=== PATIENT | female | born 1940 | race Caucasian/White ===

== ENCOUNTER 2016-08-20 10:36 | Inpatient (IN) | payer MEDICARE, BC ==
[2016-08-17 14:41] VITALS: Ht 170.2 cm; Wt 89.0 kg
[2016-08-20] VITALS (27 sets, daily range): BP systolic 81–175; BP diastolic 38–79; PULSE 71–108; RESP 16–42
[~2016-08-20] VITALS: Ht 170.2 cm; Wt 89.0 kg
[2016-08-20] MEDS ORDERED: VIT D2 PO (12:34)
[2016-08-20] MEDS ORDERED: OXYC-279 PO (12:34)
[2016-08-20] MEDS ORDERED: ZOLP5TAB7 PO (12:34)
[2016-08-20] MEDS ORDERED: ENAL20TA73 PO (12:34)
[2016-08-20] MEDS ORDERED: [UNRECOGNIZED DRUG - OTHER] PO (12:34)
[2016-08-20] MEDS ORDERED: CLOP75TA27 PO (12:34)
[2016-08-20] MEDS ORDERED: ALLO100T PO (12:34)
[2016-08-20] MEDS ORDERED: TRAM50TA2 PO (12:34)
[2016-08-20] MEDS ORDERED: SIMV5TAB50 PO (12:34)
[2016-08-20] MEDS ORDERED: POLYMYXIN/BACITRACIN 1L IRRIG ONE (12:42)
[2016-08-20] MEDS ORDERED: LIDOCAINE 0.5%/EPI (MDV) 50 ML INJ ONE (12:42)
[2016-08-20] MEDS ORDERED: THROMBIN 5000 UNIT VIAL ONE ×2 (12:42→12:50)
[2016-08-20] MEDS ORDERED: GELATIN SIZE 100 SPONGE ONE (12:42)
[2016-08-20] MEDS ORDERED: MIDAZOLAM 1 MG/ML 2 ML INJ ONE (12:59)
--- NOTE | 2016-08-20 14:06 | HPN ---
Date/Time of Note Date/Time of Note DATE: 08/20/16 TIME: 14:06 Interval H&P Admission Note Pt. seen H&P reviewed: No system changes DAPHNEY WALSH PA-C August 20, 2016 14:06
[2016-08-20] MEDS: DEXTROSE 5%-LR 1,000 ML IV SCH ×2 (14:30→20:06)
[2016-08-20] MEDS ORDERED: ONDANSETRON 4 MG INJ IV PRN ×2 (14:30→15:30)
[2016-08-20] MEDS ORDERED: CEFAZOLIN 1 GM INJ ONE (14:34)
[2016-08-20] MEDS ORDERED: THROMBIN 5000 UNIT VIAL TOP ONE (14:43)
[2016-08-20] MEDS ORDERED: GELATIN SIZE 100 SPONGE TOP ONE (14:43)
[2016-08-20] MEDS ORDERED: hydrALAzine 20 MG INJ ONE ×2 (14:43→14:46)
[2016-08-20] MEDS ORDERED: POLYMYXIN/BACITRACIN 1L IRRIG IRR ONE (14:43)
[2016-08-20] MEDS ORDERED: HYDROmorphONE (0.2 MG/ML) 10ML SYG IV PRN (15:30)
[2016-08-20] MEDS ORDERED: LABETALOL HCL 20MG INJ IV PRN (15:30)
[2016-08-20] MEDS ORDERED: hydrALAzine 20 MG INJ IV PRN (15:30)
[2016-08-20] MEDS ORDERED: PHENYLephrine (100 MCG/ML) 5ML SYG ONE (15:36)
[2016-08-20] MEDS ORDERED: LIDOCAINE 2% (SDV) 5 ML INJ ONE (16:47)
[2016-08-20] MEDS ORDERED: ROCURONIUM 50 MG INJ ONE ×2 (16:47)
[2016-08-20] MEDS ORDERED: ETOMIDATE 20 MG INJ ONE (16:47)
[2016-08-20] MEDS ORDERED: FUROSEMIDE 20 MG INJ ONE (17:03)
[2016-08-20] MEDS ORDERED: ALBUTEROL 0.083% (NEB) 2.5 MG/3 ML AMP ONE (17:08)
[2016-08-20] MEDS: FENTAnyl 50 MCG/ML VIAL IV PRN ×4 (17:21→17:57)
[2016-08-20] MEDS: HYDROmorphONE (0.2 MG/ML) 10ML SYG IV PRN ×3 (17:21→17:54)
--- NOTE | 2016-08-20 17:29 | RADRPT ---
PROCEDURE: Intraoperative imaging of the lumbar spine with fluoroscopy. CLINICAL INDICATION: Back pain. Intraoperative. TECHNIQUE: 3 images of the lumbar spine were obtained in the operating room with an image intensif ier. No radiologist was in attendance. 6.7 seconds of fluoroscopy time was used. COMPARISON: No prior study is available for comparison. FINDINGS: Images demonstrate bilateral laminectomy at multiple levels. IMPRESSION: 1. Intraoperative imaging of the lumbar spine. RPTAT: QQ .Flynn Gaitan MD, MD Date Time Electronically viewed and signed by .Flynn Gaitan MD, MD on 08/20/2016 17:29 .R/
[2016-08-20] MEDS ORDERED: ALBUTEROL 0.083% (NEB) 2.5 MG/3 ML AMP HHN ONE (17:30)
[2016-08-20] MEDS ORDERED: morphine (1 MG/ML) 10ML SYRINGE IV ONE (18:03)
[2016-08-20] MEDS: morphine (1 MG/ML) 10ML SYRINGE IV PRN ×3 (18:30→18:40)
[2016-08-20] MEDS ORDERED: EPHEDrine SULFATE 50 MG/5 ML SYG ONE (18:35)
[2016-08-20] MEDS: morphine 2 MG INJ IV PRN ×2 (20:09→23:08)
[2016-08-20] MEDS ORDERED: ACETAMINOPHEN 1000MG/100ML IV 100 ML IVPB PRN (22:00)
[2016-08-20] MEDS: CEFAZOLIN 1 GM/50 ML (PMX) 50 ML IVPB SCH (22:43)
[2016-08-21] VITALS: BP 108/61; PULSE 85; RESP 18
[2016-08-21] MEDS ORDERED: CEPASTAT LOZENGE MT PRN (01:00)
--- NOTE | 2016-08-21 01:04 | HP ---
DATE OF ADMISSION: 08/20/2016 CHIEF COMPLAINT AND HISTORY OF PRESENT ILLNESS: The patient is a 75-year-old female with history of hypertension, dyslipidemia, chronic back pain. The patient was diagnosed with lumbar spondylosis. The patient failed conservative treatment and was seen by Dr. Guido and was brought in [facility]. The patient underwent lumbar laminectomy. The patient is being admitted for further evalu ation and management. The patient denied any history of chest pain or shortness of breath. No hist ory of fever or chills. No history of nausea, vomiting. No history of abdominal pain. No history of recent infection. The patient denies any history of recent fall. No history of headache, dizzin ess, syncope. The patient did have postoperative pain. REVIEW OF SYSTEMS: The rest of review of systems unremarkable. PAST MEDICAL HISTORY: As stated above. ALLERGIES: NONE. SOCIAL HISTORY: No smoking, no alcohol. FAMILY HISTORY: Noncontributory to the patient's admission. PHYSICAL EXAMINATION: GENERAL: The patient is conscious, awake, alert. VITAL SIGNS: Temperature 98, pulse 96, blood pressure 108/57, O2 saturation 97%. HEENT: Atraumatic, normocephalic head. Conjunctivae and lids normal. Extraocular movements intact . Oropharynx clear. NECK: Supple. No mass, no thyromegaly. CHEST: Fairly clear. No use of accessory muscles. CARDIOVASCULAR: S1, S2 normal. No murmur, gallop, or rub. ABDOMEN: Soft, nondistended, nontender. Bowel sounds present. EXTREMITIES: No leg edema. Pedal pulses palpable. SKIN: Without acute rash or ____. NEUROLOGIC: The patient is awake, alert with no gross focal deficit, although exam was limited due to recent surgery. IMPRESSION: 1. Lumbar spondylosis status post laminectomy. 2. Hypertension. 3. Dyslipidemia. PLAN: The patient admitted on medical floor. The patient will be started on IV Ancef as per protoc ol. Will be given IV fluids, Tylenol, [place], and IV morphine for pain control. I will hold off on her antihypertensive medication since blood pressure is low normal. Will give hydralazine on p.r.n. basis. The patient will have SCDs for DVT prophylaxis. PT, OT as per Dr. Guido. Further recomm endation depends on patient's hospital course. Dictated By: SAUL ONTIVEROS/DEBBY Conf#: [id number] DID#: [id number] CC: LIAM GUIDO MD;*EndCC*
[2016-08-21] MEDS: morphine 2 MG INJ IV PRN ×3 (03:10→10:14)
[2016-08-21 04:00] VITALS: BP 101/64; PULSE 83; RESP 18
[2016-08-21 05:42] LABS: ADD SCAN DIFF NO
[2016-08-21 05:50] LABS: BASOPHILS % 0.1 % (0.0-2.0); EOSINOPHILS % 0.1 % (0.0-7.0); HEMATOCRIT 26.9 % (37.0-47.0); HEMOGLOBIN 8.3 g/dl (12.0-16.0); LYMPHOCYTES # 0.8 10^3/ul (0.8-2.9); LYMPHOCYTES % 6.2 % (15.0-51.0); MEAN CORPUSCULAR HEMOGLOBIN 26.9 pg (29.0-33.0); MEAN CORPUSCULAR HGB CONC 30.9 g/dl (32.0-37.0); MEAN CORPUSCULAR VOLUME 87.3 fl (82.0-101.0); MEAN PLATELET VOLUME 11.1 fl (7.4-10.4); MONOCYTE # 1.2 10^3/ul (0.3-0.9); NEUTROPHIL # 11.3 10^3/ul (1.6-7.5); NEUTROPHILS % 83.9 % (39.0-77.0); PLATELET COUNT 200 10^3/UL (140-415); RED BLOOD COUNT 3.08 10^6/ul (4.20-5.40); RED CELL DISTRIBUTION WIDTH 16.5 % (11.5-14.5); WHITE BLOOD COUNT 13.4 10^3/ul (4.8-10.8)
[2016-08-21 06:09] LABS: POTASSIUM 3.8 mmol/L (3.5-5.1)
[2016-08-21 06:12] LABS: CREATININE 1.98 mg/dl (0.44-1.00)
[2016-08-21 06:13] LABS: CALCIUM 8.5 mg/dl (8.4-10.2)
[2016-08-21] MEDS: CEFAZOLIN 1 GM/50 ML (PMX) 50 ML IVPB SCH ×3 (06:40→20:59)
[2016-08-21] MEDS: DEXTROSE 5%-LR 1,000 ML IV SCH ×2 (07:10→13:34)
[2016-08-21 07:47] VITALS: BP 138/48; RESP 18
[2016-08-21] MEDS: HYDROCODONE/APAP (10/325) TAB PO PRN ×2 (11:59→16:09)
--- NOTE | 2016-08-21 13:59 | CONS ---
Date/Time of Note Date/Time of Note DATE: 08/21/16 TIME: 13:58 Assessment/Plan Assessment/Plan Additional Assessment/Plan seen/examined awake/alert/follows/moves all/sensation intact sp lumbar laminectomy drain intact pt/ot has lumbar corset rehab eval Consultation Date/Type/Reason Admit Date/Time August 20, 2016 at 10:36 Initial Consult Date Exam/Review of Systems Vital Signs Vitals Vital Signs Date Time Temp Pulse Resp B/P Pulse Ox O2 Delivery O2 Flow Rate FiO2 08/21/16 07:47 99.9 82 18 138/48 93 08/21/16 04:00 Nasal Cannula 08/20/16 22:30 2.0 Intake and Output 08/20/16 08/20/16 08/21/16 15:00 23:00 07:00 Intake Total 1600 ml 710 ml Output Total 715 ml Balance 885 ml 710 ml Results Result Diagram: 08/21/16 0415 08/21/16 0415 Results 24 hrs Laboratory Tests Test 08/21/16 04:15 White Blood Count 13.4 H Red Blood Count 3.08 L Hemoglobin 8.3 L Hematocrit 26.9 L Mean Corpuscular Volume 87.3 Mean Corpuscular Hemoglobin 26.9 L Mean Corpuscular Hemoglobin Concent 30.9 L Red Cell Distribution Width 16.5 H Platelet Count 200 Mean Platelet Volume 11.1 H Neutrophils % 83.9 H Lymphocytes % 6.2 L Monocytes % 9.0 Eosinophils % 0.1 Basophils % 0.1 Nucleated Red Blood Cells % 0.0 Neutrophils # 11.3 H Lymphocytes # 0.8 Monocytes # 1.2 H Eosinophils # 0.0 Basophils # 0.0 Nucleated Red Blood Cells # 0.0 Sodium Level 140 Potassium Level 3.8 Chloride Level 102 Carbon Dioxide Level 26 Anion Gap 16 Blood Urea Nitrogen 26 H Creatinine 1.98 H Glucose Level 151 Calcium Level 8.5 Medications Medications Current Medications Dextrose/Lactated Ringer's 1,000 ml @ 60 mls/hr [id number] IV Last administered on 08/21/16 13:34; Admin Dose 60 MLS/HR; Start 08/20/16 at 14:30 Cefazolin Sodium (Ancef 1 Gm/50 ml (Pmx)) 50 ml @ 100 mls/hr Q8 IVPB Last administered on 08/21/16 13:35; Admin Dose 100 MLS/HR; Start 08/20/16 at 22:00; Stop 08/21/16 at 22:00 Morphine Sulfate (morphine) 2 mg Q3H PRN IV severe pain Last administered on 10:14; Admin Dose 2 MG; Start 08/20/16 at 14:30 Acetaminophen/ Hydrocodone Bitart ([place] ()) 1 tab Q4H PRN PO PAIN Last administered on 08/21/16 11:59; Admin Dose 1 TAB; Start 08/20/16 at 14:30 Ondansetron HCl (Zofran Inj) 4 mg Q6H PRN IV NAUSEA AND/OR VOMITING Last administered on 08/20/16 20:14; Admin Dose 4 MG; Start 08/20/16 at 14:30 Clonidine 0.1 mg 0.1 mg Q4H PRN PO sbp>160; Start 08/20/16 at 14:30 Acetaminophen (Ofirmev 1000mg/ 100ml Iv) 100 ml @ 400 mls/hr Q6H PRN IVPB PAIN LEVEL 1-3; Start 08/20/16 at 22:00 Phenol (Cepastat Lozenge) 1 lozenge Q6 PRN MT SORE THROAT Last administered on 08/21/16 01:15; Admin Dose 1 LOZENGE; Start 08/21/16 at 01:00 Enalapril Maleate (Vasotec) 20 mg DAILY PO ; Start 08/21/16 at 15:30 Zolpidem Tartrate (Ambien) 5 mg QHS PRN PO INSOMNIA; Start 08/21/16 at 14:00 DAPHNEY WALSH PA-C August 21, 2016 13:59
--- NOTE | 2016-08-21 15:25 | PN ---
DATE: 08/21/2016 SUBJECTIVE: This is a follow up on laminectomy, hypertension, diabetes, peripheral vascular disease , CKD and anemia. The patient reports that after 2 mg of morphine she still had significant pain, n o radicular pain. No numbness, tingling in lower extremities. No resting pain in both legs. No ch est pain or shortness of breath. No reported dizziness. PHYSICAL EXAMINATION: GENERAL: The patient is conscious, awake and alert. VITAL SIGNS: Temperature 99.9, pulse 82, blood pressure 138/48, O2 saturation is 93%. Pulse 82. HEENT: No eye discharge or redness. Oropharynx clear. NECK: No mass. CHEST: Fairly clear. No use of accessory muscles. CARDIOVASCULAR: S1, S2 normal. No murmur, gallop, or rub. ABDOMEN: Soft, nondistended, nontender. Bowel sounds positive. EXTREMITIES: No leg edema. Pedal pulses palpable. SKIN: Without acute rash or ulcer. NEUROLOGIC: The patient is awake, alert, fairly oriented with no gross focal deficit; however, agai n exam was limited due to recent lower back surgery. LABORATORY DATA: Hemoglobin 8.3, down from 10.3 preoperatively, WBC 13.4, platelet 200. Chemistry: Sodium 140, potassium 3.8, BUN 26, creatinine 1.9 which is close to her baseline. Preoperatively, her BUN was 29, creatinine was 1.9. Serum iron done recently was 43, LDL 65. T4 of 9.9. IMPRESSION 1. Lumbar spondylosis status post laminectomy. 2. Anemia of chronic kidney disease with some drop in hemoglobin due to recent surgery. 3. Hypertension. 4. Dyslipidemia. 5. Peripheral vascular disease. 6. Chronic kidney disease stage III. 7. History of gout. 8. Chronic obstructive pulmonary disease. PLAN: We will check iron panel and serum ferritin. We will give 1 dose of Procrit due to anemia of chronic kidney disease. Will hold off on Vasotec and will continue statins. I spoke with Pio black rding the resumption regarding resuming Plavix and according to him once the drain is out, Plavix co uld be resumed. Meanwhile, we will resume her Allopurinol. Will also obtain stool for OV and will increase the dose of morphine. Will continue to follow from a medical standpoint. Acute rehabilita tion evaluation has been requested. Dictated By: SAUL ONTIVEROS/DEBBY Conf#: [id number] DID#: [id number]
[2016-08-21] MEDS ORDERED: EPOETIN 10000 UNITS/ML (NON ESRD/NON ONCOLOGY) SC ONE (16:00)
[2016-08-21] MEDS: FERROUS SULFATE (EC) 325 MG TAB PO SCH (16:09)
[2016-08-21 16:10] VITALS: BP 119/57; PULSE 84
[2016-08-21] MEDS: ENALAPRIL 20 MG TAB PO SCH (16:10)
[2016-08-21 19:57] VITALS: BP 111/62; PULSE 86; RESP 18
[2016-08-21] MEDS: ZOLPIDEM 5 MG TAB PO PRN (20:57)
[2016-08-21] MEDS: ATORVASTATIN 10 MG TAB PO SCH (20:57)
[2016-08-21] MEDS ORDERED: ATORVASTATIN 10 MG TAB PO SCH (21:00)
[2016-08-22] MEDS: HYDROCODONE/APAP (10/325) TAB PO PRN ×4 (04:55→20:31)
[2016-08-22 05:35] LABS: IRON < 10 ug/dl (35-150); TOTAL IRON BINDING CAPACITY 201 ug/dl (241-421)
[2016-08-22 07:49] VITALS: BP 102/54; RESP 18
[2016-08-22] MEDS: ENALAPRIL 20 MG TAB PO SCH (08:14)
[2016-08-22] MEDS: DEXTROSE 5%-LR 1,000 ML IV SCH (08:15)
[2016-08-22] MEDS: FERROUS SULFATE (EC) 325 MG TAB PO SCH (08:15)
[2016-08-22 08:18] VITALS: BP 96/54; PULSE 80
[2016-08-22] MEDS ORDERED: AMLODIPINE 5 MG TAB PO SCH (09:00)
[2016-08-22] MEDS: morphine 2 MG INJ IV PRN (12:31)
--- NOTE | 2016-08-22 17:37 | PN ---
Date/Time of Note Date/Time of Note DATE: 08/22/16 TIME: 17:32 Assessment/Plan VTE Prophylaxis VTE Prophylaxis Intervention: SCD's Lines/Catheters IV Catheter Type (from Nrsg): Saline Lock Urinary Cath still in place: Yes Reason Cath still needed: urinary retention Assessment/Plan Assessment/Plan 1. Lumbar spondylosis status post laminectomy. Continue to follow-up surgical recommendations. Continue physical therapy. 2. Anemia of chronic kidney disease with some drop in hemoglobin due to recent surgery. 3. Hypertension. 4. Dyslipidemia. 5. Peripheral vascular disease. 6. Chronic kidney disease stage III. 7. History of gout. 8. Chronic obstructive pulmonary disease. Further recommendations based on clinical course. Plan of care discussed with Dr. Walker. Subjective 24 Hr Interval Summary Free Text/Dictation Patient status post surgical drain removal, complaints of back pain was getting out of bed, comfortable at rest, denies nausea vomiting. Exam/Review of Systems Vital Signs Vitals Vital Signs Date Time Temp Pulse Resp B/P Pulse Ox O2 Delivery O2 Flow Rate FiO2 08/22/16 10:10 97.9 08/22/16 08:45 Nasal Cannula 2.0 08/22/16 08:18 80 96/54 08/22/16 07:49 18 93 Intake and Output 08/21/16 08/21/16 08/22/16 15:00 23:00 07:00 Intake Total 390 ml 1430 ml 1520 ml Output Total 1725 ml 905 ml Balance 390 ml -295 ml 615 ml Exam Constitutional: alert, oriented Psych: nl mood/affect, no complaints Head: atraumatic, normocephalic Eyes: nl conjunctiva ENMT: nl external ears & nose Neck: non-tender, supple Respiratory: clear to auscultation, normal air movement Cardiovascular: nl pulses, regular rate and rhythm Gastrointestinal: non-tender, soft Musculoskeletal: nl extremities to inspection, other (Back status post surgery) Extremities: normal pulses Neurological: SPACE PLANNER II-XII intact Results Result Diagram: 08/21/16 0415 08/21/16 0415 Results 24 hrs Laboratory Tests Test 08/22/16 04:55 Iron Level < 10 L Total Iron Binding Capacity 201 L Percent Iron Saturation Ferritin 51.5 Medications Medications Current Medications Morphine Sulfate (morphine) 2 mg Q3H PRN IV severe pain Last administered on t 12:31; Admin Dose 2 MG; Start 08/20/16 at 14:30 Acetaminophen/ Hydrocodone Bitart ([place] (10/325)) 1 tab Q4H PRN PO PAIN Last administered on 08/22/16 14:12; Admin Dose 1 TAB; Start 08/20/16 at 14:30 Ondansetron HCl (Zofran Inj) 4 mg Q6H PRN IV NAUSEA AND/OR VOMITING Last administered on 08/20/16 20:14; Admin Dose 4 MG; Start 08/20/16 at 14:30 Clonidine 0.1 mg 0.1 mg Q4H PRN PO sbp>160; Start 08/20/16 at 14:30 Acetaminophen (Ofirmev 1000mg/ 100ml Iv) 100 ml @ 400 mls/hr Q6H PRN IVPB PAIN LEVEL 1-3 Last administered on 08/22/16 08:15; Admin Dose 400 MLS/HR; Start 08/20/16 at 22:00 Phenol (Cepastat Lozenge) 1 lozenge Q6 PRN MT SORE THROAT Last administered on 08/21/16 01:15; Admin Dose 1 LOZENGE; Start 08/21/16 at 01:00 Enalapril Maleate (Vasotec) 20 mg DAILY PO Last administered on 08/21/16 16:10 ; Admin Dose 20 MG; Start 08/21/16 at 15:30 Zolpidem Tartrate (Ambien) 5 mg QHS PRN PO INSOMNIA Last administered on 20:57; Admin Dose 5 MG; Start 08/21/16 at 14:00 Atorvastatin Calcium (Lipitor) 10 mg HS PO Last administered on 08/21/16 20:57 ; Admin Dose 10 MG; Start 08/21/16 at 21:00 Amlodipine Besylate (Norvasc) 5 mg DAILY PO ; Start 08/22/16 at 09:00 Ferrous Sulfate (Ferrous Sulfate (Ec)) 325 mg DAILY PO Last administered on 08/22 08:15; Admin Dose 325 MG; Start 08/21/16 at 14:30 MIKAEL PANCHAL August 22, 2016 17:37
[2016-08-22 19:54] VITALS: BP 115/54; RESP 20
[2016-08-22] MEDS: ATORVASTATIN 10 MG TAB PO SCH (20:27)
[2016-08-22 23:55] VITALS: BP 131/61; RESP 20
[2016-08-23] MEDS: HYDROCODONE/APAP (10/325) TAB PO PRN ×3 (00:57→21:04)
[2016-08-23] MEDS: ZOLPIDEM 5 MG TAB PO PRN ×2 (00:57→21:04)
[2016-08-23 04:54] LABS: ADD SCAN DIFF NO
[2016-08-23 04:59] LABS: BASOPHILS % 0.2 % (0.0-2.0); EOSINOPHILS # 0.1 10^3/ul (0.0-0.5); EOSINOPHILS % 0.6 % (0.0-7.0); HEMATOCRIT 23.3 % (37.0-47.0); HEMOGLOBIN 7.1 g/dl (12.0-16.0); LYMPHOCYTES # 0.9 10^3/ul (0.8-2.9); LYMPHOCYTES % 4.8 % (15.0-51.0); MEAN CORPUSCULAR HEMOGLOBIN 26.7 pg (29.0-33.0); MEAN CORPUSCULAR HGB CONC 30.5 g/dl (32.0-37.0); MEAN CORPUSCULAR VOLUME 87.6 fl (82.0-101.0); MEAN PLATELET VOLUME 10.8 fl (7.4-10.4); MONOCYTE # 1.2 10^3/ul (0.3-0.9); MONOCYTES % 6.6 % (0.0-11.0); NEUTROPHIL # 15.7 10^3/ul (1.6-7.5); NEUTROPHILS % 86.6 % (39.0-77.0); PLATELET COUNT 171 10^3/UL (140-415); RED BLOOD COUNT 2.66 10^6/ul (4.20-5.40); RED CELL DISTRIBUTION WIDTH 16.3 % (11.5-14.5); WHITE BLOOD COUNT 18.2 10^3/ul (4.8-10.8)
[2016-08-23 05:32] LABS: POTASSIUM 3.8 mmol/L (3.5-5.1)
[2016-08-23 05:35] LABS: CREATININE 1.65 mg/dl (0.44-1.00)
[2016-08-23 05:36] LABS: CALCIUM 8.5 mg/dl (8.4-10.2)
[2016-08-23 08:08] VITALS: BP 103/55; RESP 19
[2016-08-23] MEDS: ENALAPRIL 20 MG TAB PO SCH (09:00)
[2016-08-23] MEDS: FERROUS SULFATE (EC) 325 MG TAB PO SCH (09:05)
[2016-08-23] MEDS ORDERED: BISACODYL 10 MG SUPP PR ONE (12:00)
--- NOTE | 2016-08-23 12:19 | PN ---
DATE: 08/23/2016 SUBJECTIVE: Follow up on laminectomy, hypertension, diabetes, anemia of chronic disease, COPD. The patient reports severe constipation. Denies any chest pain or abdominal pain. No reported vomitin g, no reported fever or chills, no reported headache, no reported cough or sore throat. Patient gonzáles s not have orthopnea. PHYSICAL EXAMINATION: GENERAL: The patient is conscious, awake, alert. VITAL SIGNS: Temperature 98.4, pulse 81, respirations 19, blood pressure 103/55, O2 saturation 98% on 2 liters nasal cannula. HEENT: Atraumatic, normocephalic. Conjunctivae are pale. Lids are normal. Oropharynx revealed pa le mucosa. Nose and ears are normal. NECK: No mass. CHEST: Revealed diminished air entry at the bases. No use of accessory muscles. CARDIOVASCULAR: S1, S2 normal. No murmur, gallop, or rub. ABDOMEN: Soft, nondistended, nontender. Bowel sounds present. EXTREMITIES: No leg edema. NEUROLOGIC: The patient is awake, alert, follows simple commands. Does have generalized weakness. LABORATORY: Labs done this morning, WBC 18.2, hemoglobin 7.1, platelets 171. Sodium 135, potassium 3.8, BUN 22, creatinine 1.6, serum iron less than 10, ferritin 51.5. IMPRESSION: 1. Symptomatic anemia due to anemia of chronic kidney disease, as well as iron deficiency. Will gi ve her 1 unit of PRBCs and will also give her IV iron. 2. Chronic kidney disease. Creatinine has improved. Continue to monitor. 3. Hypertension. Blood pressure well controlled, in fact systolic pressure has been between 103 to 131. Will decrease enalapril dose to 10 mg once a day. 4. Peripheral vascular disease. Status post multiple stentings, stable. Will resume Plavix today since the drain has been removed. 5. Dyslipidemia. The patient is tolerating statins well. PLAN: Meanwhile will add Dulcolax suppositories stat for severe constipation and will add senna to p revent constipation since she has been on narcotics. Will do followup labs in the morning. Plan of care discussed with the nursing staff. Dictated By: SAUL ONTIVEROS/DEBBY Conf#: [id number] DID#: [id number]
[2016-08-23] MEDS: SOD FERRIC GLUC COMPLX 125 MG in SOD CHLORIDE 0.9% 100 ML IVPB SCH (13:08)
--- NOTE | 2016-08-23 14:48 | PN ---
Date/Time of Note Date/Time of Note DATE: 08/23/16 TIME: 14:48 Assessment/Plan Lines/Catheters IV Catheter Type (from Nrs): Saline Lock Guy in Place (from Nrs): Yes Assessment/Plan Chief Complaint/Hosp Course POD1 ALERT MOVES ALL DRAIN FXNAL CONT WITH DRAIN PT AND OT Problems: Exam/Review of Systems Vital Signs Vitals Vital Signs Date Time Temp Pulse Resp B/P Pulse Ox O2 Delivery O2 Flow Rate FiO2 08/23/16 08:08 98.0 81 19 103/55 98 08/22/16 21:15 Nasal Cannula 2.0 Intake and Output 08/22/16 08/22/16 08/23/16 15:00 23:00 07:00 Intake Total 410 ml 1040 ml 350 ml Output Total 350 ml 550 ml Balance 410 ml 690 ml -200 ml Results Result Diagram: 08/23/16 0435 08/23/16 0435 LIAM GUIDO MD August 23, 2016 14:48
[2016-08-23 15:00] VITALS: BP 108/54; RESP 18
[2016-08-23 15:15] VITALS: BP 137/60; RESP 18
[2016-08-23 17:00] VITALS: BP 143/59; RESP 18
[2016-08-23 18:00] VITALS: BP 126/66; RESP 18
[2016-08-23] MEDS: ATORVASTATIN 10 MG TAB PO SCH (21:04)
[2016-08-24 05:34] LABS: ADD SCAN DIFF NO
[2016-08-24 05:37] LABS: BASOPHILS % 0.1 % (0.0-2.0); EOSINOPHILS # 0.2 10^3/ul (0.0-0.5); EOSINOPHILS % 1.3 % (0.0-7.0); HEMOGLOBIN 7.8 g/dl (12.0-16.0); LYMPHOCYTES # 0.9 10^3/ul (0.8-2.9); LYMPHOCYTES % 7.6 % (15.0-51.0); MEAN CORPUSCULAR HEMOGLOBIN 27.1 pg (29.0-33.0); MEAN CORPUSCULAR HGB CONC 31.2 g/dl (32.0-37.0); MEAN CORPUSCULAR VOLUME 86.8 fl (82.0-101.0); MEAN PLATELET VOLUME 11.4 fl (7.4-10.4); MONOCYTE # 0.9 10^3/ul (0.3-0.9); MONOCYTES % 7.2 % (0.0-11.0); NEUTROPHIL # 10.3 10^3/ul (1.6-7.5); NEUTROPHILS % 82.8 % (39.0-77.0); PLATELET COUNT 182 10^3/UL (140-415); RED BLOOD COUNT 2.88 10^6/ul (4.20-5.40); WHITE BLOOD COUNT 12.4 10^3/ul (4.8-10.8)
[2016-08-24 05:50] LABS: CALCIUM 8.7 mg/dl (8.4-10.2); CREATININE 1.35 mg/dl (0.44-1.00); POTASSIUM 3.8 mmol/L (3.5-5.1)
[2016-08-24 08:04] VITALS: BP 129/60; RESP 19
[2016-08-24] MEDS: HYDROCODONE/APAP (10/325) TAB PO PRN (09:01)
[2016-08-24] MEDS: ENALAPRIL 10 MG TAB PO SCH (09:02)
[2016-08-24] MEDS: SENNA/DOCUSATE NA (8.6MG/50MG) TAB PO SCH ×2 (09:02→20:12)
[2016-08-24] MEDS: CLOPIDOGREL 75 MG TAB PO SCH (09:02)
[2016-08-24] MEDS: FERROUS SULFATE (EC) 325 MG TAB PO SCH (09:02)
[2016-08-24] MEDS: SOD FERRIC GLUC COMPLX 125 MG in SOD CHLORIDE 0.9% 100 ML IVPB SCH (12:03)
[2016-08-24 13:00] VITALS: BP 118/53; RESP 18
[2016-08-24 13:15] VITALS: BP 122/74; RESP 18
[2016-08-24 14:00] VITALS: BP 130/60; RESP 18
[2016-08-24 15:00] VITALS: BP 129/60; RESP 18
--- NOTE | 2016-08-24 16:21 | PN ---
Date/Time of Note Date/Time of Note DATE: 08/24/16 TIME: 16:17 Assessment/Plan VTE Prophylaxis VTE Prophylaxis Intervention: SCD's Lines/Catheters IV Catheter Type (from [facility]): Saline Lock Central line still needed: Yes Urinary Cath still in place: Yes Reason Cath still needed: urinary retention Assessment/Plan Chief Complaint/Hosp Course Assessment/Plan 1. Lumbar spondylosis status post laminectomy. Continue to follow-up surgical recommendations. Continue physical therapy. 2. Anemia of chronic kidney disease with some drop in hemoglobin due to recent surgery in addition to iron deficiency anemia, status post blood transfusion continue to monitor hemoglobin and hematocrit. Continue iron supplements. 3. Hypertension. Continue Vasotec. 4. Dyslipidemia. Continue statin. 5. Peripheral vascular disease. Continue Plavix. 6. Chronic kidney disease stage III. 7. History of gout. 8. Chronic obstructive pulmonary disease. Further recommendations based on clinical course. Plan of care discussed with Dr. Walker. Problems: Subjective 24 Hr Interval Summary Free Text/Dictation Patient with drop in hemoglobin today status post blood transfusion, complains of generalized weakness, remains hemodynamically stable. Exam/Review of Systems Vital Signs Vitals Vital Signs Date Time Temp Pulse Resp B/P Pulse Ox O2 Delivery O2 Flow Rate FiO2 08/24/16 15:00 18 129/60 Room Air 08/24/16 14:00 98.0 98 08/23/16 21:30 2.0 08/23/16 08:08 81 Intake and Output 08/23/16 08/23/16 08/24/16 15:00 23:00 07:00 Intake Total 110 ml 620 ml 950 ml Output Total 900 ml Balance 110 ml 620 ml 50 ml Exam Constitutional: alert, oriented Psych: nl mood/affect, no complaints Head: atraumatic, normocephalic Eyes: nl conjunctiva ENMT: nl external ears & nose Neck: non-tender, supple Respiratory: clear to auscultation, normal air movement Cardiovascular: nl pulses, regular rate and rhythm Gastrointestinal: non-tender, soft Musculoskeletal: nl extremities to inspection, other (Back status post surgery) Extremities: normal pulses Neurological: 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 Results Result Diagram: 08/24/16 0435 08/24/16 0435 Results 24 hrs Laboratory Tests Test 08/24/16 04:35 White Blood Count 12.4 #H Red Blood Count 2.88 L Hemoglobin 7.8 L Hematocrit 25.0 L Mean Corpuscular Volume 86.8 Mean Corpuscular Hemoglobin 27.1 L Mean Corpuscular Hemoglobin Concent 31.2 L Red Cell Distribution Width 16.0 H Platelet Count 182 Mean Platelet Volume 11.4 H Neutrophils % 82.8 H Lymphocytes % 7.6 L Monocytes % 7.2 Eosinophils % 1.3 Basophils % 0.1 Nucleated Red Blood Cells % 0.0 Neutrophils # 10.3 H Lymphocytes # 0.9 Monocytes # 0.9 Eosinophils # 0.2 Basophils # 0.0 Nucleated Red Blood Cells # 0.0 Sodium Level 134 L Potassium Level 3.8 Chloride Level 101 Carbon Dioxide Level 29 Anion Gap 8 Blood Urea Nitrogen 20 Creatinine 1.35 H Glucose Level 96 Calcium Level 8.7 Medications Medications Current Medications Morphine Sulfate (morphine) 2 mg Q3H PRN IV severe pain Last administered on 12:31; Admin Dose 2 MG; Start 08/20/16 at 14:30 Acetaminophen/ Hydrocodone Bitart ([place] (10/325)) 1 tab Q4H PRN PO PAIN Last administered on 08/24/16 09:01; Admin Dose 1 TAB; Start 08/20/16 at 14:30 Ondansetron HCl (Zofran Inj) 4 mg Q6H PRN IV NAUSEA AND/OR VOMITING Last administered on 08/20/16 20:14; Admin Dose 4 MG; Start 08/20/16 at 14:30 Clonidine 0.1 mg 0.1 mg Q4H PRN PO sbp>160; Start 08/20/16 at 14:30 Acetaminophen (Ofirmev 1000mg/ 100ml Iv) 100 ml @ 400 mls/hr Q6H PRN IVPB PAIN LEVEL 1-3 Last administered on 08/22/16 08:15; Admin Dose 400 MLS/HR; Start 08/20/16 at 22:00 Phenol (Cepastat Lozenge) 1 lozenge Q6 PRN MT SORE THROAT Last administered on 08/21/16 01:15; Admin Dose 1 LOZENGE; Start 08/21/16 at 01:00 Zolpidem Tartrate (Ambien) 5 mg QHS PRN PO INSOMNIA Last administered on 21:04; Admin Dose 5 MG; Start 08/21/16 at 14:00 Atorvastatin Calcium (Lipitor) 10 mg HS PO Last administered on 08/23/16 21:04 ; Admin Dose 10 MG; Start 08/21/16 at 21:00 Amlodipine Besylate (Norvasc) 5 mg DAILY PO ; Start 08/22/16 at 09:00; Status Future Hold Ferrous Sulfate (Ferrous Sulfate (Ec)) 325 mg DAILY PO Last administered on 08/24 09:02; Admin Dose 325 MG; Start 08/21/16 at 14:30 Senna/Docusate Sodium (Senokot-S) 1 tab BID PO Last administered on 08/24/16 09 :02; Admin Dose 1 TAB; Start 08/24/16 at 09:00 Enalapril Maleate (Vasotec) 10 mg DAILY PO Last administered on 08/24/16 09:02 ; Admin Dose 10 MG; Start 08/24/16 at 09:00 Clopidogrel Bisulfate 75 mg 75 mg DAILY PO Last administered on 08/24/16 09:02 ; Admin Dose 75 MG; Start 08/24/16 at 09:00 Ferric Sodium Gluconate Complex/ Sodium Chloride (Ferrlecit/NS) 110 ml @ 100 mls/hr Q24H IVPB Last administered on 08/24/16 12:03; Admin Dose 100 MLS/HR; Start 08/23/16 at 13:00; Stop 08/25/16 at 14:05 MIKAEL PANCHAL August 24, 2016 16:21
[2016-08-24 17:21] LABS: ADD SCAN DIFF NO
[2016-08-24 17:23] LABS: BASOPHILS % 0.4 % (0.0-2.0); EOSINOPHILS # 0.2 10^3/ul (0.0-0.5); EOSINOPHILS % 1.8 % (0.0-7.0); HEMATOCRIT 26.6 % (37.0-47.0); HEMOGLOBIN 8.5 g/dl (12.0-16.0); LYMPHOCYTES # 1.2 10^3/ul (0.8-2.9); LYMPHOCYTES % 12.1 % (15.0-51.0); MEAN CORPUSCULAR HEMOGLOBIN 27.7 pg (29.0-33.0); MEAN CORPUSCULAR VOLUME 86.6 fl (82.0-101.0); MEAN PLATELET VOLUME 10.7 fl (7.4-10.4); MONOCYTE # 0.7 10^3/ul (0.3-0.9); MONOCYTES % 7.4 % (0.0-11.0); NEUTROPHIL # 7.6 10^3/ul (1.6-7.5); NEUTROPHILS % 77.3 % (39.0-77.0); PLATELET COUNT 177 10^3/UL (140-415); RED BLOOD COUNT 3.07 10^6/ul (4.20-5.40); RED CELL DISTRIBUTION WIDTH 15.7 % (11.5-14.5); WHITE BLOOD COUNT 9.8 10^3/ul (4.8-10.8)
[2016-08-24 19:55] VITALS: BP 140/90; PULSE 84; RESP 18
[2016-08-24] MEDS: ATORVASTATIN 10 MG TAB PO SCH (20:12)
[2016-08-24] MEDS: ZOLPIDEM 5 MG TAB PO PRN (20:12)
[2016-08-24] MEDS: morphine 2 MG INJ IV PRN (20:12)
[2016-08-25] MEDS: morphine 2 MG INJ IV PRN ×3 (05:04→18:42)
[2016-08-25 05:23] LABS: CALCIUM 8.5 mg/dl (8.4-10.2); CREATININE 1.32 mg/dl (0.44-1.00); POTASSIUM 3.5 mmol/L (3.5-5.1)
[2016-08-25] MEDS: HYDROCODONE/APAP (10/325) TAB PO PRN ×2 (08:38→21:19)
[2016-08-25] MEDS: CLOPIDOGREL 75 MG TAB PO SCH (08:38)
[2016-08-25] MEDS: FERROUS SULFATE (EC) 325 MG TAB PO SCH (08:38)
[2016-08-25] MEDS: SENNA/DOCUSATE NA (8.6MG/50MG) TAB PO SCH ×2 (08:39→21:19)
[2016-08-25] MEDS: ENALAPRIL 10 MG TAB PO SCH (08:39)
[2016-08-25 08:41] VITALS: BP 177/73; RESP 18
--- NOTE | 2016-08-25 11:47 | PN ---
Date/Time of Note Date/Time of Note DATE: 08/25/16 TIME: 11:43 Assessment/Plan VTE Prophylaxis VTE Prophylaxis Intervention: other Lines/Catheters IV Catheter Type (from [facility]): Saline Lock Urinary Cath still in place: Yes Reason Cath still needed: urinary retention Assessment/Plan Assessment/Plan - Hyponatremia- resloved - Acute Renal insufficiency- BUN/Cr - improving , cont to monitor - Lumbar spondylosis status post laminectomy. Continue to follow-up surgical recommendations. Continue physical therapy. - Anemia of chronic kidney disease with some drop in hemoglobin due to recent surgery in addition to iron deficiency anemia, status post blood transfusion continue to monitor hemoglobin and hematocrit. Continue iron supplements. - Hypertension. Continue Vasotec. - Dyslipidemia. Continue statin. - Peripheral vascular disease. Continue Plavix. - Chronic kidney disease stage III. - History of gout. - Chronic obstructive pulmonary disease. Further recommendations based on clinical course. Transfer to Acute Rehab Unit when medically stable.Plan of care discussed with Dr. Walker. Subjective 24 Hr Interval Summary Free Text/Dictation doing well, afebrile, Na wnl, bun/cr stlll elevated but improved, cont to monitor, Transfer to Acute Rehab Unit when medically stable- dw staff Eyes: no complaints ENT: no complaints Respiratory: no complaints Cardiovascular: no complaints Gastrointestinal: no complaints Genitourinary: no complaints Musculoskeletal: back pain Skin: no complaints Neurologic: no complaints Endocrine: no complaints Lymphatic: no complaints Psychological: no complaints Immunologic: no complaints Exam/Review of Systems Vital Signs Vitals Vital Signs Date Time Temp Pulse Resp B/P Pulse Ox O2 Delivery O2 Flow Rate FiO2 08/25/16 08:41 98.2 73 18 177/73 92 08/24/16 19:55 Room Air 08/23/16 21:30 2.0 Intake and Output 08/24/16 08/24/16 08/25/16 15:00 23:00 07:00 Intake Total 110 ml 1100 ml 1200 ml Output Total 1000 ml 1100 ml Balance 110 ml 100 ml 100 ml Exam Constitutional: alert Eyes: EOMI, nl sclera Neck: non-tender Respiratory: clear to auscultation Cardiovascular: nl pulses Gastrointestinal: non-tender, soft Musculoskeletal: nl extremities to inspection Extremities: normal pulses Neurological: nl mental status, nl speech, other (back surgery- DDI) Skin: nl turgor Lymph: nontender Results Result Diagram: 08/24/16 1655 08/25/16 0430 Results 24 hrs Laboratory Tests Test 08/24/16 16:55 08/25/16 04:30 White Blood Count 9.8 # Red Blood Count 3.07 L Hemoglobin 8.5 L Hematocrit 26.6 L Mean Corpuscular Volume 86.6 Mean Corpuscular Hemoglobin 27.7 L Mean Corpuscular Hemoglobin Concent 32.0 Red Cell Distribution Width 15.7 H Platelet Count 177 Mean Platelet Volume 10.7 H Neutrophils % 77.3 H Lymphocytes % 12.1 L Monocytes % 7.4 Eosinophils % 1.8 Basophils % 0.4 Nucleated Red Blood Cells % 0.0 Neutrophils # 7.6 H Lymphocytes # 1.2 Monocytes # 0.7 Eosinophils # 0.2 Basophils # 0.0 Nucleated Red Blood Cells # 0.0 Sodium Level 135 Potassium Level 3.5 Chloride Level 102 Carbon Dioxide Level 28 Anion Gap 9 Blood Urea Nitrogen 22 H Creatinine 1.32 H Glucose Level 89 Calcium Level 8.5 Medications Medications Current Medications Morphine Sulfate (morphine) 2 mg Q3H PRN IV severe pain Last administered on 05:04; Admin Dose 2 MG; Start 08/20/16 at 14:30 Acetaminophen/ Hydrocodone Bitart ([place] (10325)) 1 tab Q4H PRN PO PAIN Last administered on 08/25/16 08:38; Admin Dose 1 TAB; Start 08/20/16 at 14:30 Ondansetron HCl (Zofran Inj) 4 mg Q6H PRN IV NAUSEA AND/OR VOMITING Last administered on 08/20/16 20:14; Admin Dose 4 MG; Start 08/20/16 at 14:30 Clonidine 0.1 mg 0.1 mg Q4H PRN PO sbp>160; Start 08/20/16 at 14:30 Acetaminophen (Ofirmev 1000mg/ 100ml Iv) 100 ml @ 400 mls/hr Q6H PRN IVPB PAIN LEVEL 1-3 Last administered on 08/22/16 08:15; Admin Dose 400 MLS/HR; Start 08/20/16 at 22:00 Phenol (Cepastat Lozenge) 1 lozenge Q6 PRN MT SORE THROAT Last administered on 08/21/16 01:15; Admin Dose 1 LOZENGE; Start 08/21/16 at 01:00 Zolpidem Tartrate (Ambien) 5 mg QHS PRN PO INSOMNIA Last administered on 20:12; Admin Dose 5 MG; Start 08/21/16 at 14:00 Atorvastatin Calcium (Lipitor) 10 mg HS PO Last administered on 08/24/16 20:12 ; Admin Dose 10 MG; Start 08/21/16 at 21:00 Amlodipine Besylate (Norvasc) 5 mg DAILY PO ; Start 08/22/16 at 09:00; Status Future Hold Ferrous Sulfate (Ferrous Sulfate (Ec)) 325 mg DAILY PO Last administered on 08/25 08:38; Admin Dose 325 MG; Start 08/21/16 at 14:30 Senna/Docusate Sodium (Senokot-S) 1 tab BID PO Last administered on 08/25/16 08 :39; Admin Dose 1 TAB; Start 08/24/16 at 09:00 Enalapril Maleate (Vasotec) 10 mg DAILY PO Last administered on 08/25/16 08:39 ; Admin Dose 10 MG; Start 08/24/16 at 09:00 Clopidogrel Bisulfate 75 mg 75 mg DAILY PO Last administered on 08/25/16 08:38 ; Admin Dose 75 MG; Start 08/24/16 at 09:00 Ferric Sodium Gluconate Complex/ Sodium Chloride (Ferrlecit/NS) 110 ml @ 100 mls/hr Q24H IVPB Last administered on 08/24/16 12:03; Admin Dose 100 MLS/HR; Start 08/23/16 at 13:00; Stop 08/25/16 at 14:05 SAAD GOODMAN August 25, 2016 11:47
[2016-08-25] MEDS: SOD FERRIC GLUC COMPLX 125 MG in SOD CHLORIDE 0.9% 100 ML IVPB SCH (12:05)
--- NOTE | 2016-08-25 12:26 | PN ---
Date/Time of Note Date/Time of Note DATE: 08/25/16 TIME: 12:26 Assessment/Plan Lines/Catheters IV Catheter Type (from Nrs): Saline Lock Guy in Place (from Nrs): Yes Assessment/Plan Chief Complaint/Hosp Course POD1 ALERT MOVES ALL DRAIN FXNAL CONT WITH DRAIN PT AND OT Problems: Assessment/Plan doing better stronger dc to rehab am excellent recovery Exam/Review of Systems Vital Signs Vitals Vital Signs Date Time Temp Pulse Resp B/P Pulse Ox O2 Delivery O2 Flow Rate FiO2 08/25/16 08:41 98.2 73 18 177/73 92 08/24/16 19:55 Room Air 08/23/16 21:30 2.0 Intake and Output 08/24/16 08/24/16 08/25/16 15:00 23:00 07:00 Intake Total 110 ml 1100 ml 1200 ml Output Total 1000 ml 1100 ml Balance 110 ml 100 ml 100 ml Results Result Diagram: 08/24/16 1655 08/25/16 0430 LIAM GUIDO MD August 25, 2016 12:26
[2016-08-25 19:56] VITALS: BP 143/65; RESP 18
[2016-08-25] MEDS: ATORVASTATIN 10 MG TAB PO SCH (21:19)
[2016-08-25] MEDS: ZOLPIDEM 5 MG TAB PO PRN (23:30)
[2016-08-26] MEDS: HYDROCODONE/APAP (10/325) TAB PO PRN ×3 (05:34→15:00)
[2016-08-26 05:55] LABS: ABNORMAL IP MESSAGE 1; ADD SCAN DIFF NO; HEMATOCRIT 27.4 % (37.0-47.0); HEMOGLOBIN 8.8 g/dl (12.0-16.0); MEAN CORPUSCULAR HEMOGLOBIN 27.5 pg (29.0-33.0); MEAN CORPUSCULAR HGB CONC 32.1 g/dl (32.0-37.0); MEAN CORPUSCULAR VOLUME 85.6 fl (82.0-101.0); MEAN PLATELET VOLUME 10.3 fl (7.4-10.4); PLATELET COUNT 196 10^3/UL (140-415); RED CELL DISTRIBUTION WIDTH 15.5 % (11.5-14.5); WHITE BLOOD COUNT 8.1 10^3/ul (4.8-10.8)
[2016-08-26 06:59] LABS: POTASSIUM 3.1 mmol/L (3.5-5.1)
[2016-08-26 07:01] LABS: CREATININE 1.44 mg/dl (0.44-1.00)
[2016-08-26 07:36] VITALS: BP 158/70; RESP 18
[2016-08-26] MEDS ORDERED: POTASSIUM CHLORIDE (SR) 20 MEQ TAB PO STA (07:51)
[2016-08-26] MEDS: FERROUS SULFATE (EC) 325 MG TAB PO SCH (08:17)
[2016-08-26] MEDS: ENALAPRIL 10 MG TAB PO SCH (08:18)
[2016-08-26] MEDS: SENNA/DOCUSATE NA (8.6MG/50MG) TAB PO SCH (08:18)
[2016-08-26] MEDS: CLOPIDOGREL 75 MG TAB PO SCH (08:18)
[2016-08-26 12:17] LABS: OVALOCYTES OCCASIONAL
[2016-08-26 12:18] LABS: EOSINOPHILS # 0.3 10^3/ul (0.0-0.5); LYMPHOCYTES # 1.9 10^3/ul (0.8-2.9); MONOCYTE # 0.6 10^3/ul (0.3-0.9); MYELOCYTES # 0.2; NEUTROPHIL # 4.5 10^3/ul (1.6-7.5)
--- NOTE | 2016-08-26 12:50 | PDOCDIS ---
Discharge Instructions CONDITION Patient Condition: Stable HOME CARE INSTRUCTIONS: Diet Instructions: RegularSpecial Diet: REGULAR ACTIVITY: Activity Restrictions: Slowly Increase Activity Rest between Activity Avoid heavy lifting Do not Drive Avoid Heavy Housework Bathing Restrictions: Sponge Bath SAAD GOODMAN August 26, 2016 12:50
--- NOTE | 2016-08-26 12:52 | DS ---
Date/Time of Note Date/Time of Note DATE: 08/26/16 TIME: 12:52 Discharge Summary Admission/Discharge Info Admit Date/Time August 20, 2016 at 10:36 Discharge Date/Time Final Diagnosis 1. Lumbar spondylosis status post laminectomy. Continue to follow-up surgical recommendations. Continue physical therapy. - per acute rehab recommendations 2. Anemia of chronic kidney disease with some drop in hemoglobin due to recent surgery in addition to iron deficiency anemia, status post blood transfusion continue to monitor hemoglobin and hematocrit. Continue iron supplements. 3. Hypertension. Continue Vasotec. 4. Dyslipidemia. Continue statin. 5. Peripheral vascular disease. Continue Plavix. 6. Chronic kidney disease stage III. 7. History of gout. 8. Chronic obstructive pulmonary disease. Further recommendations based on clinical course. Plan of care discussed with Dr. Walker. Patient Condition: Stable Hospital Course The patient is a 75-year-old female with history of hypertension, dyslipidemia, chronic back pain, lumbar spondylosis, with failed conservative treatment. The patient is sp lumbar laminectomy and was admitted for further evaluation and management. Surgery was performed by Dr Panchal. Patient got stable and was evaluated by Acute Rehab Unit and got accepted. Patient denies chest pain, shortness of breath, fever or chills, headache, focal weakness or numbness, nausea, vomiting, any abdominal pain. Constitutional: alert, nad, VSS. Eyes: EOMI, nl sclera Neck: non-tender Respiratory: clear to auscultation Cardiovascular: nl pulses Gastrointestinal: non-tender, soft Musculoskeletal: nl extremities to inspection Extremities: normal pulses Neurological: nl mental status, nl speech, other (back surgery- DDI) Skin: nl turgor Lymph: nontender Will be transferred to ARU today. yomi schmitz/dr Walker/patient. Home Meds Reported Medications Allopurinol* (Allopurinol*) 100 Mg Tablet, 100 MG PO DAILY, TAB 08/20/16 [Tirosin] No Conflict Check, 112 MCG PO DAILY 08/20/16 Oxycodone HCl/Acetaminophen (Percocet 5-325 mg Tablet) 1 Each Tablet, 1 EACH PO Q6 for SYL, TAB 08/20/16 Tramadol HCl (Tramadol HCl) 50 Mg Tablet, 50 MG PO Q6 Y for PAIN, #120 TAB 08/20/16 [Vit D2] No Conflict Check, 1000 PO Q WEEK 08/20/16 Zolpidem Tartrate* (Zolpidem Tartrate*) 5 Mg Tablet, 5 MG PO QHS Y for INSOMNIA , #30 TAB 08/20/16 Clopidogrel Bisulfate (Clopidogrel) 75 Mg Tablet, 75 MG PO DAILY, #30 TAB 08/20/16 Enalapril Maleate* (Vasotec*) 20 Mg Tablet, 20 MG PO DAILY, TAB 08/20/16 Simvastatin* (Simvastatin*) 5 Mg Tablet, 10 MG PO QHS, #30 TAB 08/20/16 Pending Labs Laboratory Tests Test 08/26/16 04:45 White Blood Count 8.110^3/ul (4.8-10.8) Red Blood Count 3.2010^6/ul (4.20-5.40) Hemoglobin 8.8g/dl (12.0-16.0) Hematocrit 27.4% (37.0-47.0) Mean Corpuscular Volume 85.6fl (82.0-101.0) Mean Corpuscular Hemoglobin 27.5pg (29.0-33.0) Mean Corpuscular Hemoglobin Concent 32.1g/dl (32.0-37.0) Red Cell Distribution Width 15.5% (11.5-14.5) Platelet Count 56023^3/UL (140-415) Mean Platelet Volume 10.3fl (7.4-10.4) Neutrophils % 55.0% (39.0-77.0) Band Neutrophils % 4.0% (0.0-5.0) Lymphocytes % 24.0% (15.0-51.0) Monocytes % 7.0% (0.0-11.0) Eosinophils % 4.0% (0.0-7.0) Metamyelocytes % 1.0% (0.0-0.0) Myelocytes % 3.0% (0.0-0.0) Promyelocytes % 2.0% (0.0-0.0) Neutrophils # 4.510^3/ul (1.6-7.5) Lymphocytes # 1.910^3/ul (0.8-2.9) Monocytes # 0.610^3/ul (0.3-0.9) Eosinophils # 0.310^3/ul (0.0-0.5) Metamyelocytes # 0.1 Myelocytes # 0.2 Promyelocytes # 0.2 Differential Comment MANUAL DIFF Giant Platelets RARE Ovalocytes OCCASIONAL Rouleau OCCASIONAL Sodium Level 139mmol/L (135-144) Potassium Level 3.1mmol/L (3.5-5.1) Chloride Level 100mmol/L (97-110) Carbon Dioxide Level 31mmol/L (21-31) Anion Gap 11 (8-16) Blood Urea Nitrogen 23mg/dl (7-20) Creatinine 1.44mg/dl (0.44-1.00) Glucose Level 83mg/dl (70-220) Calcium Level 8.0mg/dl (8.4-10.2) SAAD GOODMAN August 26, 2016 12:52
--- NOTE | 2016-09-09 14:52 | OPR ---
DATE OF OPERATION: 08/20/2016 PREOPERATIVE DIAGNOSES: 1. Lumbar stenosis. 2. Lumbar spondylosis. 3. Lumbar foraminal stenosis L3-L4 and L4-L5 with lumbar radiculopathy. POSTOPERATIVE DIAGNOSES: 1. Severe lumbar stenosis. 2. Lumbar spondylosis. 3. Lumbar foraminal stenosis L3-L4 and L4-L5 with lumbar radiculopathy. 4. Neurogenic claudication. 5. Mechanical low back pain. PROCEDURE: 1. L3-L4 posterolateral fusion. CPT 88152. 2. L4-L5 posterolateral fusion. CPT 44786. 3. L3 bilateral laminectomy, medial facetectomy and foraminotomy. CPT 60137. 4. L4 bilateral laminectomy, medial facetectomy and foraminotomy. CPT 59818. 5. L5 bilateral laminectomy, medial facetectomy and foraminotomy. CPT 75348. SURGEON: Liam Alvarado MD PROCESS SUPERVISOR: KEON Grubbs COMPLICATIONS OF THE OPERATION: None. ANESTHESIA: General endotracheal. ESTIMATED BLOOD LOSS: Less than 200. COUNTS: Needle counts and sponge counts were correct. SPECIMENS: Multiple fragments of the lamina was sent to pathology. INDICATIONS FOR OPERATION: Please refer to my consultation. Sallie Tyson is well known to me. S he is 75, has been complaining of low back pain and leg pain. She has severe lumbar stenosis. We w ill proceed with lumbar laminectomy, decompression of spinal canal. Risks and benefits of the opera tion, including anesthesia, infection, bleeding, permanent neurological injury and were explai willis. We also have gotten authorization to perform with a fusion at the same time with in situ fusio n, placing the bone in the posterolateral position of the lumbar spinal canal. Risks and benefits o f the operation, including anesthesia, infection, bleeding, permanent neurological injury, and were explained. The patient agreed to proceed with the operation and signed the consent. PROCEDURE IN DETAIL: The patient was placed in supine position. Adequate general endotracheal anes thesia was obtained. The patient was turned prone on vertical bolsters. The lumbar region was shav ed, prepped and draped in normal sterile fashion, was infiltrated with lidocaine with epinephrine so lution. Midline incision was made after timeout was called. The incision was carried to the lamina of L4, L5 and L3 level and x-ray confirmed our position. The transverse process of L3 and L4 and L 5 was identified. Following this, the lamina was removed with double action rongeur along with the spinous process was morselized on the back table. Laminectomy was carried out with #2, #3, #4 and #5 Kerrison punches, performing neural foraminotomy at each and every level. At the level of L3, L4, L5, I was able to identify the nerve roots of L3, L4, L5 and S1 and completely decompress the nerves deep into the cari ral foramen. There was severe stenosis of the spinal canal. There was an area that bone had grown through dura and it appeared to have a little CSF leak that was repaired primarily with 5-0 Prolene suture without any difficulty. The bone that was harvested during the case was placed as an onlay graft of the posterolateral posit ion under the transverse processes after the transverse processes were completely decorticated. A m edium-sized Hemovac drain was placed in the wound. After that, the wound was irrigated with bacitra rolanda solution and all the bleeders were stopped with bipolar cautery. The Hemovac was secured to the wound with 2-0 nylon sutures. Closure of the wound was done with #1 Vicryl for the lumbodorsal fas deonna, 2-0 and 3-0 Vicryl for subcutaneous tissue and dermis with Steri-Strips for the skin. The emilio ent tolerated the procedure well, was taken to postanesthesia recovery in stable condition, followin g commands, moving all muscle groups of the upper and lower extremities. Spinal monitoring showed i mprovement of signal throughout. Dictated By: LIAM BAY/DEBBY Conf#: [id number] DID#: [id number]
== END 2016-08-26 15:16 | DRG 460 ==
LOC: REC 10:36 → MS1 18:18
PROVIDERS: ADMIT Internal Medicine; ATTEND Internal Medicine
PROC: 0SG1071 Fusion of 2 or more Lumbar Vertebral Joints with Autologous Tissue Substitute, Posterior Approach, Posterior Column, Open Approach (ICD-10-PCS; principal; 2016-08-20 12:30)
PROC: 30233N1 Transfusion of Nonautologous Red Blood Cells into Peripheral Vein, Percutaneous Approach (ICD-10-PCS; 2016-08-23)
DX: M47.26 Other spondylosis with radiculopathy, lumbar region (principal); N18.3 Chronic kidney disease, stage 3 (moderate); J44.9 Chronic obstructive pulmonary disease, unspecified; E87.1 Hypo-osmolality and hyponatremia; I12.9 Hypertensive chronic kidney disease with stage 1 through stage 4 chronic kidney disease, or unspecified chronic kidney disease; E78.5 Hyperlipidemia, unspecified; M48.06 Spinal stenosis, lumbar region; D63.1 Anemia in chronic kidney disease; D50.9 Iron deficiency anemia, unspecified; I10 Essential (primary) hypertension; I73.9 Peripheral vascular disease, unspecified; D50.0 Iron deficiency anemia secondary to blood loss (chronic)
CPT/HCPCS: 36430; 72100; 80048; 82728; 83540; 85025; 86850; 86900; 86901; 86920; 87086; 94664; 97116; 97162; 97530; J1940; C1762; J0131; J0360; J0690; J0885; J1170; J2250; J2270; J2370; J2405; J2916; J3010; J7121; P9016

== ENCOUNTER 2016-08-26 12:35 | Inpatient (IN) | payer MEDICARE, BC ==
[~2016-08-26] VITALS: Ht 170.2 cm; Wt 83.5 kg
[~2016-08-26 12:35] MED LIST: ALLO100T PO; CLOP75TA27 PO; ENAL20TA73 PO; OXYC-279 PO; SIMV5TAB50 PO; TRAM50TA2 PO; VIT D2 PO; ZOLP5TAB7 PO; [UNRECOGNIZED DRUG - OTHER] PO
[2016-08-26 16:33] VITALS: BP 151/70; PULSE 54; RESP 18
[2016-08-26 17:00] VITALS: Ht 170.2 cm; Wt 83.5 kg
[2016-08-26] MEDS ORDERED: CEPASTAT LOZENGE MT PRN (17:00)
[2016-08-26] MEDS ORDERED: ONDANSETRON 4 MG INJ IV PRN (17:00)
[2016-08-26] MEDS ORDERED: ACETAMINOPHEN 1000MG/100ML IV 100 ML IVPB SCH (18:00)
[2016-08-26] MEDS: HYDROCODONE/APAP (10/325) TAB PO PRN (19:51)
[2016-08-26 22:08] VITALS: BP 164/70; RESP 19
[2016-08-26] MEDS: SENNA/DOCUSATE NA (8.6MG/50MG) TAB PO SCH (22:31)
[2016-08-26] MEDS: ZOLPIDEM 5 MG TAB PO PRN (22:31)
[2016-08-26] MEDS: ATORVASTATIN 10 MG TAB PO SCH (22:31)
[2016-08-26] MEDS: morphine 2 MG INJ IV PRN (22:50)
[2016-08-27 00:44] LABS: ADD UMIC YES; URINE BILIRUBIN (Dip) NEGATIVE (NEGATIVE); URINE BLOOD (Dip) NEGATIVE (NEGATIVE); URINE COLOR LT. YELLOW (YELLOW); URINE GLUCOSE (Dip) NEGATIVE (NEGATIVE); URINE KETONES (Dip) NEGATIVE (NEGATIVE); URINE LEUKOCYTE ESTERASE (Dip) 1+ (NEGATIVE); URINE NITRITE (Dip) NEGATIVE (NEGATIVE); URINE TOTAL PROTEIN (Dip) NEGATIVE (NEGATIVE); URINE UROBILINOGEN (Dip) 0.2 E.U./dL (0.1-1.0)
[2016-08-27 00:59] LABS: SQUAMOUS EPITHELIAL CELL,UR FEW; URINE RBCS NONE SEEN /HPF (0)
[2016-08-27 01:00] LABS: BACTERIA,URINE FEW; TRANSITIONAL EPI CELLS,URINE OCCASIONAL
[2016-08-27] MEDS ORDERED: ACETAMINOPHEN 325 MG TAB PO PRN (01:00)
[2016-08-27] MEDS: HYDROCODONE/APAP (10/325) TAB PO PRN ×4 (05:04→22:00)
[2016-08-27] MEDS ORDERED: MAGNESIUM HYDROXIDE 30ML CUP PO PRN (05:30)
[2016-08-27 07:30] VITALS: BP 154/70; RESP 18
[2016-08-27] MEDS: morphine 2 MG INJ IV PRN (08:14)
[2016-08-27] MEDS: DOCUSATE SODIUM 100 MG CAP PO SCH ×2 (08:16→21:19)
[2016-08-27] MEDS: CLOPIDOGREL 75 MG TAB PO SCH (08:16)
[2016-08-27] MEDS: FERROUS SULFATE (EC) 325 MG TAB PO SCH (08:16)
[2016-08-27] MEDS: AMLODIPINE 5 MG TAB PO SCH (08:17)
[2016-08-27] MEDS: SENNA/DOCUSATE NA (8.6MG/50MG) TAB PO SCH ×2 (08:17→21:19)
[2016-08-27] MEDS: ENALAPRIL 10 MG TAB PO SCH (08:18)
[2016-08-27 08:33] LABS: ADD SCAN DIFF NO
[2016-08-27 08:39] LABS: ABNORMAL IP MESSAGE 1; BASOPHIL # 0.1 10^3/ul (0.0-0.1); BASOPHILS % 0.5 % (0.0-2.0); EOSINOPHILS # 0.3 10^3/ul (0.0-0.5); HEMATOCRIT 30.2 % (37.0-47.0); HEMOGLOBIN 9.2 g/dl (12.0-16.0); LYMPHOCYTES # 1.4 10^3/ul (0.8-2.9); LYMPHOCYTES % 14.1 % (15.0-51.0); MEAN CORPUSCULAR HEMOGLOBIN 26.8 pg (29.0-33.0); MEAN CORPUSCULAR HGB CONC 30.5 g/dl (32.0-37.0); MEAN PLATELET VOLUME 10.3 fl (7.4-10.4); MONOCYTE # 1.1 10^3/ul (0.3-0.9); MONOCYTES % 11.6 % (0.0-11.0); NEUTROPHIL # 6.1 10^3/ul (1.6-7.5); NEUTROPHILS % 62.7 % (39.0-77.0); PLATELET COUNT 223 10^3/UL (140-415); RED BLOOD COUNT 3.43 10^6/ul (4.20-5.40); RED CELL DISTRIBUTION WIDTH 15.9 % (11.5-14.5); WHITE BLOOD COUNT 9.7 10^3/ul (4.8-10.8)
[2016-08-27 09:00] LABS: ALBUMIN 2.6 g/dl (3.3-4.9); ALBUMIN/GLOBULIN RATIO 0.81; BILIRUBIN,INDIRECT 0.5 mg/dl (0-1.1); BILIRUBIN,TOTAL 0.5 mg/dl (0.2-1.3); CALCIUM 7.8 mg/dl (8.4-10.2); CREATININE 1.35 mg/dl (0.44-1.00); POTASSIUM 3.7 mmol/L (3.5-5.1); TOTAL PROTEIN 5.8 g/dl (6.1-8.1)
[2016-08-27] MEDS: BISACODYL 10 MG SUPP PR PRN (13:03)
--- NOTE | 2016-08-27 14:10 | CONS ---
DATE OF ADMISSION: 08/26/2016 DATE OF CONSULTATION: 08/27/2016 REHABILITATION POSTADMISSION PHYSICIAN EVALUATION REHABILITATION IMPAIRMENT CATEGORY: Other orthopedic disorder with severe lumbar spinal stenosis, s tatus post laminectomy. ACTIVE COMORBIDITIES: 1. Acute pain syndrome. 2. Hypertension. 3. Acute on chronic kidney disease. 4. Dyslipidemia. 5. History of gout. 6. Chronic obstructive pulmonary disease. 7. Peripheral vascular disease. 8. Impairments in self-care and mobility. HISTORY OF PRESENT ILLNESS: The patient is a very-pleasant 75-year-old female with a history of mul tiple medical comorbidities who was admitted with severe increasing radiating low back pain despite conservative measures. The patient underwent a lumbar laminectomy on 08/20/2016. Her hospital cour se has been notable for anemia, in addition to significant pain and impairments in self-care and mob ility as compared to baseline. The patient has been cleared to transfer to the rehabilitation unit for comprehensive interdisciplinary rehab care. FUNCTIONAL HISTORY: Prior to recent events, she was independent in self-care tasks and mobility. C urrently, she requires moderate assist for self-care and mobility tasks. I have reviewed the preadmission screen and the patient's current functional status is consistent wi th the preadmission screen. SOCIAL HISTORY: The patient lives at home and hopes to return there upon discharge. PAST MEDICAL HISTORY: 1. Hypertension. 2. Dyslipidemia. 3. Chronic obstructive pulmonary disease. 4. Peripheral vascular disease. 5. Chronic kidney disease. CURRENT MEDICATIONS: 1. [place] p.r.n. 2. Norvasc 5 mg p.o. daily. 3. Lipitor 10 mg p.o. at bedtime. 4. Plavix 75 mg p.o. daily. 5. Senokot p.r.n. 6. Vasotec 10 mg p.o. daily. 7. Ferrous sulfate 325 p.o. daily. 8. Ambien p.r.n. ALLERGIES: THE PATIENT WITH NO KNOWN DRUG ALLERGIES. PHYSICAL EXAMINATION: VITAL SIGNS: The patient is currently afebrile with stable vital signs. HEENT: Extraocular motion intact. Oropharynx clear. NECK: Supple. LUNGS: Clear anteriorly. CARDIAC: S1, S2. ABDOMEN: Soft, nontender, positive bowel sounds. NEUROLOGIC: She is awake and alert and oriented x3. She can follow simple 1-step commands. Crania l nerves are grossly intact. She has antigravity strength in bilateral upper extremity and lower ex tremity. She does have impaired dynamic balance. PLAN: The patient has been admitted for comprehensive interdisciplinary acute rehab and is anticipa winter to tolerate 3 hours of daily therapy in divided doses for at least 5/7 days a week. Treatment p celia will include: 1. Physical therapy to focus on bed mobility, transfers, and household ambulation with the goal of having the patient reach a standby assist level. 2. Occupational therapy to focus on hygiene, grooming, dressing, bathing, and toileting activities with goal of having patient reach standby assist level. 3. Rehabilitation nursing for carryover of therapeutic interventions with the goal of continent of bowel and bladder, and the goal of pain adequately managed on oral medications. REHABILITATION BARRIER: Pain. INTERVENTION FOR BARRIER: Comprehensive interdisciplinary approach. ESTIMATED LENGTH OF STAY: 10 days. DISPOSITION GOAL: Home. I acknowledge that I performed a full physical examination on this patient within 24 hours of admiss ion to the rehabilitation unit and believe the patient is a good candidate for comprehensive interdi sciplinary rehab care and is anticipated to make reasonable goals in a reasonable period of time as outlined above. Dictated By: RICHARD BRUNO/DEBBY Conf#: [id number] DID#: [id number]
[2016-08-27] MEDS: LACTULOSE 30ML CUP PO PRN (17:23)
[2016-08-27 19:52] VITALS: BP 149/63; RESP 18
[2016-08-27] MEDS: ATORVASTATIN 10 MG TAB PO SCH (21:19)
[2016-08-27] MEDS: ZOLPIDEM 5 MG TAB PO PRN (21:59)
--- NOTE | 2016-08-27 23:20 | HP ---
DATE OF ADMISSION: 08/26/2016 HISTORY OF PRESENT ILLNESS: The patient is a 75-year-old female with hypertension, dyslipidemia and chronic lower back pain. The patient was diagnosed with lumbar spondylosis, and patient underwent laminectomy by Dr. Alvarado on 08/20. The patient also had anemia due to postoperative blood loss an d was given blood transfusion. However, patient had pain and impairment in self-care and mobility a nd was transferred for further management to acute rehabilitation. PAST MEDICAL HISTORY: Positive for hypertension, dyslipidemia, COPD, PVD and chronic kidney disease . PAST SURGICAL HISTORY: Denies having any surgeries prior to laminectomy this month. SOCIAL HISTORY: The patient lives at home. The patient denies any tobacco use, denies any illicit drug use, denies any alcohol use. ALLERGIES: THE PATIENT HAS NO KNOWN ALLERGY. MEDICATIONS ON ADMISSION: 1. Hayden. 2. Norvasc. 3. Lipitor. 4. Plavix. 5. Senna. 6. Vasotec. 7. Ferrous sulfate. 8. Ambien p.r.n. REVIEW OF SYSTEMS: A 12-point review of systems is negative unless mentioned in HPI. PHYSICAL ASSESSMENT: GENERAL: Well-developed, well-nourished female, currently is awake, alert. VITAL SIGNS: Temperature is 98.7, pulse is 54, blood pressure 154/70, respiratory rate 18, oxygen s aturation 94% on room air. HEENT: Head is atraumatic, normocephalic. Pupils equal, round, reactive to light and accommodation . Oral mucosa is pink, moist. NECK: Supple. No cervical lymphadenopathy, no thyromegaly. CHEST: Lungs clear bilaterally with no rhonchi, wheezes, rales noted. CARDIOVASCULAR: Normal S1, S2. No murmurs, gallops, clicks, rubs noted. ABDOMEN: Round, soft, nondistended, nontender. Bowel sounds present. BACK: Status post surgery with dry, clean, intact surgical incision. SKIN: There is no rash, petechiae noted. EXTREMITIES: There is no edema, clubbing, cyanosis. NEUROLOGIC: The patient is awake, alert and oriented x4. No focal deficit noted. Motor strength 5 /5 in all extremities. LABORATORY DATA ON ADMISSION: CBC: White blood cells 9.7, hemoglobin 9.2, hematocrit 30.2, platele ts 223. Chemistry: Sodium is 137, potassium 3.7, chloride 103, carbon dioxide 29, anion gap 9, BUN is 19, creatinine 1.35. ASSESSMENT AND PLAN: 1. Lumbar spondylosis, status post laminectomy. 2. Hypertension. 3. Hyperlipidemia. 4. Anemia of blood loss in addition to iron deficiency anemia. 5. Chronic kidney disease. 6. Peripheral vascular disease. Going to continue physical and occupational therapy, continue Hayden and Tylenol for pain. Plan of care was discussed with Dr. Diaz. Dictated By: MIKAEL PANCHAL [employer] SERVICER for SAUL DIAZ MD SR/NTS Conf#: [id number] DID#: [id number]
[2016-08-28] MEDS: BISACODYL 10 MG SUPP PR PRN (01:36)
[2016-08-28] MEDS: HYDROCODONE/APAP (10/325) TAB PO PRN ×4 (02:21→22:05)
[2016-08-28 08:01] VITALS: BP 147/68; RESP 18
[2016-08-28] MEDS: SENNA/DOCUSATE NA (8.6MG/50MG) TAB PO SCH ×2 (09:00→20:18)
[2016-08-28] MEDS: DOCUSATE SODIUM 100 MG CAP PO SCH ×2 (09:39→20:18)
[2016-08-28] MEDS: FERROUS SULFATE (EC) 325 MG TAB PO SCH (09:39)
[2016-08-28] MEDS: CLOPIDOGREL 75 MG TAB PO SCH (09:39)
[2016-08-28] MEDS: AMLODIPINE 5 MG TAB PO SCH (09:40)
[2016-08-28] MEDS: ENALAPRIL 10 MG TAB PO SCH (09:40)
--- NOTE | 2016-08-28 11:47 | CONS ---
Date/Time of Note Date/Time of Note DATE: 08/28/16 TIME: 11:45 Consult Date/Type/Reason Admit Date/Time August 26, 2016 at 15:57 Initial Consult Date Subjective Reports results with bowel program Objective min amb 60 feet currently performing self care with assistive device Vital Signs Date Time Temp Pulse Resp B/P Pulse Ox O2 Delivery O2 Flow Rate FiO2 08/28/16 08:01 98.8 57 18 147/68 94 08/27/16 20:00 Nasal Cannula 2.0 Intake and Output 08/27/16 08/27/16 08/28/16 15:00 23:00 07:00 Intake Total 320 ml 980 ml Output Total 900 ml Balance 320 ml 80 ml Results/Medications Result Diagram: 08/27/16 0657 08/27/16 0657 Medications Current Medications Enalapril Maleate (Vasotec) 10 mg DAILY PO Last administered on 08/28/16 09:40 ; Admin Dose 10 MG; Start 08/27/16 at 09:00 Ferrous Sulfate (Ferrous Sulfate (Ec)) 325 mg DAILY PO Last administered on 08/28 09:39; Admin Dose 325 MG; Start 08/27/16 at 09:00 Morphine Sulfate (morphine) 2 mg Q3H PRN IV PAIN Last administered on 08/27/16 08:14; Admin Dose 2 MG; Start 08/26/16 at 17:00 Ondansetron HCl (Zofran Inj) 4 mg Q6H PRN IV NAUSEA AND/OR VOMITING; Start 08/26 at 17:00 Phenol (Cepastat Lozenge) 1 lozenge Q6H PRN MT SORE THROAT; Start 08/26/16 at 17 :00 Zolpidem Tartrate (Ambien) 5 mg HS PRN PO INSOMNIA Last administered on 21:59; Admin Dose 5 MG; Start 08/26/16 at 17:00 Acetaminophen/ Hydrocodone Bitart 1 tab 1 tab Q4H PRN PO PAIN Last administered on 08/28/16 08:15; Admin Dose 1 TAB; Start 08/26/16 at 17:00 Acetaminophen (Ofirmev 1000mg/ 100ml Iv) 100 ml @ 400 mls/hr Q6 IVPB ; Start at 18:00; Status Future Hold Amlodipine Besylate (Norvasc) 5 mg DAILY PO Last administered on 08/28/16 09:40 ; Admin Dose 5 MG; Start 08/27/16 at 09:00 Atorvastatin Calcium (Lipitor) 10 mg DAILY@21 PO Last administered on 08/27/16 21:19; Admin Dose 10 MG; Start 08/26/16 at 21:00 Clonidine (Catapres) 0.1 mg Q4H PRN PO SBP > 160; Start 08/26/16 at 17:00 Clopidogrel Bisulfate (plaVIX) 75 mg DAILY PO Last administered on 08/28/16 09: 39; Admin Dose 75 MG; Start 08/27/16 at 09:00 Senna/Docusate Sodium (Senokot-S) 1 tab BID PO Last administered on 08/27/16 21 :19; Admin Dose 1 TAB; Start 08/26/16 at 21:00 Docusate Sodium (Colace) 100 mg BID PO Last administered on 08/28/16 09:39; Admin Dose 100 MG; Start 08/27/16 at 09:00 Acetaminophen (Tylenol Tab) 650 mg Q4H PRN PO PAIN; Start 08/27/16 at 01:00 Magnesium Hydroxide (Milk Of Mag) 30 ml BID PRN PO CONSTIPATION; Start 08/27/16 at 05:30 Lactulose (Enulose) 20 gm DAILY PRN PO CONSTIPATION Last administered on 17:23; Admin Dose 20 GM; Start 08/27/16 at 05:30 Bisacodyl (Dulcolax Supp) 10 mg DAILY PRN [place] CONSTIPATION Last administered on 08/28/16 01:36; Admin Dose 10 MG; Start 08/27/16 at 05:30 Assessment/Plan Additional Assessment/Plan Rehab- Spinal stenosis-s/p lami Tolerating rehab program, contineu treatment Pain- under control A/CKD Gout COPD RICHARD SHAVER MD August 28, 2016 11:47
[2016-08-28] MEDS: ALLOPURINOL 100 MG TAB PO SCH (17:29)
--- NOTE | 2016-08-28 19:47 | PN ---
Date/Time of Note Date/Time of Note DATE: 08/28/16 TIME: 19:45 Assessment/Plan VTE Prophylaxis VTE Prophylaxis Intervention: SCD's Lines/Catheters [facility] Saline Lock Assessment/Plan Chief Complaint/Hosp Course ASSESSMENT AND PLAN: 1. Lumbar spondylosis, status post laminectomy. Continue physical therapy. 2. Hypertension. Continue Vasotec. 3. Hyperlipidemia. Continue Lipitor. 4. Anemia of blood loss in addition to iron deficiency anemia. Continue iron supplements. 5. Chronic kidney disease. 6. Peripheral vascular disease. 7. Gout, continue allopurinol. Further recommendations based on clinical course. Plan of care was discussed with Dr. Walker. Problems: Subjective 24 Hr Interval Summary Free Text/Dictation Patient works with physical therapy, pain is well controlled. Exam/Review of Systems Vital Signs Vitals Vital Signs Date Time Temp Pulse Resp B/P Pulse Ox O2 Delivery O2 Flow Rate FiO2 08/28/16 08:01 98.8 57 18 147/68 94 08/27/16 20:00 Nasal Cannula 2.0 Intake and Output 08/27/16 08/27/16 08/28/16 15:00 23:00 07:00 Intake Total 320 ml 980 ml Output Total 900 ml Balance 320 ml 80 ml Exam GENERAL: Well-developed, well-nourished female, currently is awake, alert. HEENT: Head is atraumatic, normocephalic. Pupils equal, round, reactive to light and accommodation. Oral mucosa is pink, moist. NECK: Supple. No cervical lymphadenopathy, no thyromegaly. CHEST: Lungs clear bilaterally with no rhonchi, wheezes, rales noted. CARDIOVASCULAR: Normal S1, S2. No murmurs, gallops, clicks, rubs noted. ABDOMEN: Round, soft, nondistended, nontender. Bowel sounds present. BACK: Status post surgery with dry, clean, intact surgical incision. SKIN: There is no rash, petechiae noted. EXTREMITIES: There is no edema, clubbing, cyanosis. NEUROLOGIC: The patient is awake, alert and oriented x4. Results Result Diagram: 08/27/16 0657 08/27/16 0657 Medications Medications Current Medications Enalapril Maleate (Vasotec) 10 mg DAILY PO Last administered on 08/28/16t 09:40 ; Admin Dose 10 MG; Start 08/27/16 at 09:00 Ferrous Sulfate (Ferrous Sulfate (Ec)) 325 mg DAILY PO Last administered on 08/28 09:39; Admin Dose 325 MG; Start 08/27/16 at 09:00 Morphine Sulfate (morphine) 2 mg Q3H PRN IV PAIN Last administered on 08/27/16 08:14; Admin Dose 2 MG; Start 08/26/16 at 17:00 Ondansetron HCl (Zofran Inj) 4 mg Q6H PRN IV NAUSEA AND/OR VOMITING; Start 08/26 at 17:00 Phenol (Cepastat Lozenge) 1 lozenge Q6H PRN MT SORE THROAT; Start 08/26/16 at 17 :00 Zolpidem Tartrate (Ambien) 5 mg HS PRN PO INSOMNIA Last administered on 21:59; Admin Dose 5 MG; Start 08/26/16 at 17:00 Acetaminophen/ Hydrocodone Bitart 1 tab 1 tab Q4H PRN PO PAIN Last administered on 08/28/16 15:25; Admin Dose 1 TAB; Start 08/26/16 at 17:00 Acetaminophen (Ofirmev 1000mg/ 100ml Iv) 100 ml @ 400 mls/hr Q6 IVPB ; Start at 18:00; Status Future Hold Amlodipine Besylate (Norvasc) 5 mg DAILY PO Last administered on 08/28/16 09:40 ; Admin Dose 5 MG; Start 08/27/16 at 09:00 Atorvastatin Calcium (Lipitor) 10 mg DAILY@21 PO Last administered on 08/27/16 21:19; Admin Dose 10 MG; Start 08/26/16 at 21:00 Clonidine (Catapres) 0.1 mg Q4H PRN PO SBP > 160; Start 08/26/16 at 17:00 Clopidogrel Bisulfate (plaVIX) 75 mg DAILY PO Last administered on 08/28/16 09: 39; Admin Dose 75 MG; Start 08/27/16 at 09:00 Senna/Docusate Sodium (Senokot-S) 1 tab BID PO Last administered on 08/27/16 21 :19; Admin Dose 1 TAB; Start 08/26/16 at 21:00 Docusate Sodium (Colace) 100 mg BID PO Last administered on 08/28/16 09:39; Admin Dose 100 MG; Start 08/27/16 at 09:00 Acetaminophen (Tylenol Tab) 650 mg Q4H PRN PO PAIN; Start 08/27/16 at 01:00 Magnesium Hydroxide (Milk Of Mag) 30 ml BID PRN PO CONSTIPATION; Start 08/27/16 at 05:30 Lactulose (Enulose) 20 gm DAILY PRN PO CONSTIPATION Last administered on 17:23; Admin Dose 20 GM; Start 08/27/16 at 05:30 Bisacodyl (Dulcolax Supp) 10 mg DAILY PRN [place] CONSTIPATION Last administered on 08/28/16 01:36; Admin Dose 10 MG; Start 08/27/16 at 05:30 Allopurinol (Zyloprim) 100 mg DAILY PO Last administered on 08/28/16 17:29; Admin Dose 100 MG; Start 08/28/16 at 16:00 MIKAEL PANCHAL August 28, 2016 19:47
[2016-08-28 20:00] VITALS: BP 163/72; RESP 18
[2016-08-28] MEDS: ATORVASTATIN 10 MG TAB PO SCH (20:14)
[2016-08-28] MEDS: ZOLPIDEM 5 MG TAB PO PRN (22:02)
[2016-08-29 06:51] VITALS: BP 152/59; PULSE 76
[2016-08-29] MEDS: HYDROCODONE/APAP (10/325) TAB PO PRN ×4 (06:51→22:04)
[2016-08-29 07:28] VITALS: BP 138/63; RESP 18
[2016-08-29] MEDS: SENNA/DOCUSATE NA (8.6MG/50MG) TAB PO SCH ×2 (08:34→21:00)
[2016-08-29] MEDS: DOCUSATE SODIUM 100 MG CAP PO SCH ×2 (08:34→22:03)
[2016-08-29] MEDS: ALLOPURINOL 100 MG TAB PO SCH (08:34)
[2016-08-29] MEDS: CLOPIDOGREL 75 MG TAB PO SCH (08:34)
[2016-08-29] MEDS: ENALAPRIL 10 MG TAB PO SCH (08:35)
[2016-08-29] MEDS: FERROUS SULFATE (EC) 325 MG TAB PO SCH (08:35)
[2016-08-29] MEDS: AMLODIPINE 5 MG TAB PO SCH (08:35)
--- NOTE | 2016-08-29 10:52 | CONS ---
Date/Time of Note Date/Time of Note DATE: 08/29/16 TIME: 10:52 Consult Date/Type/Reason Admit Date/Time August 26, 2016 at 15:57 Subjective Slept well Objective pulm-cta abd-soft cga ambulation Vital Signs Date Time Temp Pulse Resp B/P Pulse Ox O2 Delivery O2 Flow Rate FiO2 08/29/16 07:28 98.0 66 18 138/63 97 08/27/16 20:00 Nasal Cannula 2.0 Intake and Output 08/28/16 08/28/16 08/29/16 14:59 22:59 06:59 Intake Total 1240 ml 620 ml 1150 ml Balance 1240 ml 620 ml 1150 ml Results/Medications Result Diagram: 08/27/16 0657 08/27/16 0657 Medications Current Medications Enalapril Maleate (Vasotec) 10 mg DAILY PO Last administered on 08/29/16 08:35 ; Admin Dose 10 MG; Start 08/27/16 at 09:00 Ferrous Sulfate (Ferrous Sulfate (Ec)) 325 mg DAILY PO Last administered on 08:35; Admin Dose 325 MG; Start 08/27/16 at 09:00 Morphine Sulfate (morphine) 2 mg Q3H PRN IV PAIN Last administered on 08/27/16 08:14; Admin Dose 2 MG; Start 08/26/16 at 17:00 Ondansetron HCl (Zofran Inj) 4 mg Q6H PRN IV NAUSEA AND/OR VOMITING; Start 08/26 at 17:00 Phenol (Cepastat Lozenge) 1 lozenge Q6H PRN MT SORE THROAT; Start 08/26/16 at 17 :00 Zolpidem Tartrate (Ambien) 5 mg HS PRN PO INSOMNIA Last administered on 22:02; Admin Dose 5 MG; Start 08/26/16 at 17:00 Acetaminophen/ Hydrocodone Bitart 1 tab 1 tab Q4H PRN PO PAIN Last administered on 08/29/16 06:51; Admin Dose 1 TAB; Start 08/26/16 at 17:00 Acetaminophen (Ofirmev 1000mg/ 100ml Iv) 100 ml @ 400 mls/hr Q6 IVPB ; Start at 18:00; Status Future Hold Amlodipine Besylate (Norvasc) 5 mg DAILY PO Last administered on 08/29/16 08: 35; Admin Dose 5 MG; Start 08/27/16 at 09:00 Atorvastatin Calcium (Lipitor) 10 mg DAILY@21 PO Last administered on 08/28/16 20:14; Admin Dose 10 MG; Start 08/26/16 at 21:00 Clonidine (Catapres) 0.1 mg Q4H PRN PO SBP > 160; Start 08/26/16 at 17:00 Clopidogrel Bisulfate (plaVIX) 75 mg DAILY PO Last administered on 08/29/16 08 :34; Admin Dose 75 MG; Start 08/27/16 at 09:00 Senna/Docusate Sodium (Senokot-S) 1 tab BID PO Last administered on 08/29/16 08:34; Admin Dose 1 TAB; Start 08/26/16 at 21:00 Docusate Sodium (Colace) 100 mg BID PO Last administered on 08/29/16 08:34; Admin Dose 100 MG; Start 08/27/16 at 09:00 Acetaminophen (Tylenol Tab) 650 mg Q4H PRN PO PAIN; Start 08/27/16 at 01:00 Magnesium Hydroxide (Milk Of Mag) 30 ml BID PRN PO CONSTIPATION; Start 08/27/16 at 05:30 Lactulose (Enulose) 20 gm DAILY PRN PO CONSTIPATION Last administered on 17:23; Admin Dose 20 GM; Start 08/27/16 at 05:30 Bisacodyl (Dulcolax Supp) 10 mg DAILY PRN [place] CONSTIPATION Last administered on 08/28/16 01:36; Admin Dose 10 MG; Start 08/27/16 at 05:30 Allopurinol (Zyloprim) 100 mg DAILY PO Last administered on 08/29/16 08:34; Admin Dose 100 MG; Start 08/28/16 at 16:00 Assessment/Plan Additional Assessment/Plan Rehab- Spinal stenosis-s/p lami Patient is pleased with her progress, continue rehab Pain- under control A/CKD Gout COPD RICHARD SHAVER MD August 29, 2016 10:52
--- NOTE | 2016-08-29 18:14 | PN ---
Date/Time of Note Date/Time of Note DATE: 08/29/16 TIME: 18:14 Assessment/Plan VTE Prophylaxis VTE Prophylaxis Intervention: SCD's Lines/Catheters [facility] Assessment/Plan Chief Complaint/Hosp Course ASSESSMENT AND PLAN: 1. Lumbar spondylosis, status post laminectomy. Continue physical therapy. 2. Hypertension. Continue Vasotec. 3. Hyperlipidemia. Continue Lipitor. 4. Anemia of blood loss in addition to iron deficiency anemia. Continue iron supplements. 5. Chronic kidney disease. 6. Peripheral vascular disease. 7. Gout, continue allopurinol. Further recommendations based on clinical course. Plan of care was discussed with Dr. Walker. Problems: Subjective 24 Hr Interval Summary Free Text/Dictation Progresses with physical therapy, pain is well controlled. Exam/Review of Systems Vital Signs Vitals Vital Signs Date Time Temp Pulse Resp B/P Pulse Ox O2 Delivery O2 Flow Rate FiO2 08/29/16 07:28 98.0 66 18 138/63 97 08/27/16 20:00 Nasal Cannula 2.0 Intake and Output 08/28/16 08/28/16 08/29/16 15:00 23:00 07:00 Intake Total 1240 ml 620 ml 1150 ml Balance 1240 ml 620 ml 1150 ml Exam GENERAL: Well-developed, well-nourished female, currently is awake, alert. HEENT: Head is atraumatic, normocephalic. Pupils equal, round, reactive to light and accommodation. Oral mucosa is pink, moist. NECK: Supple. No cervical lymphadenopathy, no thyromegaly. CHEST: Lungs clear bilaterally with no rhonchi, wheezes, rales noted. CARDIOVASCULAR: Normal S1, S2. No murmurs, gallops, clicks, rubs noted. ABDOMEN: Round, soft, nondistended, nontender. Bowel sounds present. BACK: Status post surgery with dry, clean, intact surgical incision. SKIN: There is no rash, petechiae noted. EXTREMITIES: There is no edema, clubbing, cyanosis. NEUROLOGIC: The patient is awake, alert and oriented x4. Results Result Diagram: 08/27/16 0657 08/27/16 0657 Medications Medications Current Medications Enalapril Maleate (Vasotec) 10 mg DAILY PO Last administered on 08/29/16t 08:35 ; Admin Dose 10 MG; Start 5/8/17 at 09:00 Ferrous Sulfate (Ferrous Sulfate (Ec)) 325 mg DAILY PO Last administered on 08:35; Admin Dose 325 MG; Start 08/27/16 at 09:00 Morphine Sulfate (morphine) 2 mg Q3H PRN IV PAIN Last administered on 08/27/16 08:14; Admin Dose 2 MG; Start 08/26/16 at 17:00 Ondansetron HCl (Zofran Inj) 4 mg Q6H PRN IV NAUSEA AND/OR VOMITING; Start 08/26 at 17:00 Phenol (Cepastat Lozenge) 1 lozenge Q6H PRN MT SORE THROAT; Start 08/26/16 at 17 :00 Zolpidem Tartrate (Ambien) 5 mg HS PRN PO INSOMNIA Last administered on 22:02; Admin Dose 5 MG; Start 08/26/16 at 17:00 Acetaminophen/ Hydrocodone Bitart 1 tab 1 tab Q4H PRN PO PAIN Last administered on 08/29/16 15:27; Admin Dose 1 TAB; Start 08/26/16 at 17:00 Acetaminophen (Ofirmev 1000mg/ 100ml Iv) 100 ml @ 400 mls/hr Q6 IVPB ; Start at 18:00; Status Future Hold Amlodipine Besylate (Norvasc) 5 mg DAILY PO Last administered on 08/29/16 08: 35; Admin Dose 5 MG; Start 08/27/16 at 09:00 Atorvastatin Calcium (Lipitor) 10 mg DAILY@21 PO Last administered on 08/28/16 20:14; Admin Dose 10 MG; Start 08/26/16 at 21:00 Clonidine (Catapres) 0.1 mg Q4H PRN PO SBP > 160; Start 08/26/16 at 17:00 Clopidogrel Bisulfate (plaVIX) 75 mg DAILY PO Last administered on 08/29/16 08 :34; Admin Dose 75 MG; Start 08/27/16 at 09:00 Senna/Docusate Sodium (Senokot-S) 1 tab BID PO Last administered on 08/29/16 08:34; Admin Dose 1 TAB; Start 08/26/16 at 21:00 Docusate Sodium (Colace) 100 mg BID PO Last administered on 08/29/16 08:34; Admin Dose 100 MG; Start 08/27/16 at 09:00 Acetaminophen (Tylenol Tab) 650 mg Q4H PRN PO PAIN; Start 08/27/16 at 01:00 Magnesium Hydroxide (Milk Of Mag) 30 ml BID PRN PO CONSTIPATION; Start 08/27/16 at 05:30 Lactulose (Enulose) 20 gm DAILY PRN PO CONSTIPATION Last administered on 17:23; Admin Dose 20 GM; Start 08/27/16 at 05:30 Bisacodyl (Dulcolax Supp) 10 mg DAILY PRN DC CONSTIPATION Last administered on 08/28/16 01:36; Admin Dose 10 MG; Start 08/27/16 at 05:30 Allopurinol (Zyloprim) 100 mg DAILY PO Last administered on 08/29/16 08:34; Admin Dose 100 MG; Start 08/28/16 at 16:00 MIKAEL PANCHAL August 29, 2016 18:14
[2016-08-29 20:00] VITALS: BP 148/66; RESP 18
[2016-08-29] MEDS: ATORVASTATIN 10 MG TAB PO SCH (22:03)
[2016-08-29] MEDS: ZOLPIDEM 5 MG TAB PO PRN (22:04)
[2016-08-30] MEDS: HYDROCODONE/APAP (10/325) TAB PO PRN ×3 (07:16→22:54)
[2016-08-30 07:30] VITALS: BP 177/75; RESP 18
[2016-08-30 08:00] VITALS: BP 177/75; PULSE 78; RESP 18
[2016-08-30 08:30] VITALS: BP 140/60; PULSE 88
[2016-08-30] MEDS: ENALAPRIL 10 MG TAB PO SCH (09:00)
[2016-08-30] MEDS: DOCUSATE SODIUM 100 MG CAP PO SCH ×2 (09:10→21:00)
[2016-08-30] MEDS: SENNA/DOCUSATE NA (8.6MG/50MG) TAB PO SCH ×2 (09:11→21:00)
[2016-08-30] MEDS: FERROUS SULFATE (EC) 325 MG TAB PO SCH (09:11)
[2016-08-30] MEDS: ALLOPURINOL 100 MG TAB PO SCH (09:11)
[2016-08-30] MEDS: CLOPIDOGREL 75 MG TAB PO SCH (09:11)
[2016-08-30] MEDS: AMLODIPINE 5 MG TAB PO SCH (09:12)
--- NOTE | 2016-08-30 11:35 | CONS ---
Date/Time of Note Date/Time of Note DATE: 08/30/16 TIME: 11:34 Consult Date/Type/Reason Admit Date/Time August 26, 2016 at 15:57 Subjective Pain much better Objective pulm-cta abd-soft cga ambulation Vital Signs Date Time Temp Pulse Resp B/P Pulse Ox O2 Delivery O2 Flow Rate FiO2 08/30/16 08:30 88 140/60 08/30/16 08:00 98.3 18 99 Room Air 08/27/16 20:00 2.0 Intake and Output 08/29/16 08/29/16 08/30/16 15:00 23:00 07:00 Intake Total 1220 ml 600 ml Balance 1220 ml 600 ml Results/Medications Result Diagram: 08/27/16 0657 08/27/16 0657 Medications Current Medications Enalapril Maleate (Vasotec) 10 mg DAILY PO Last administered on 08/29/16 08:35 ; Admin Dose 10 MG; Start 08/27/16 at 09:00 Ferrous Sulfate (Ferrous Sulfate (Ec)) 325 mg DAILY PO Last administered on 09:11; Admin Dose 325 MG; Start 08/27/16 at 09:00 Morphine Sulfate (morphine) 2 mg Q3H PRN IV PAIN Last administered on 08/27/16 08:14; Admin Dose 2 MG; Start 08/26/16 at 17:00 Ondansetron HCl (Zofran Inj) 4 mg Q6H PRN IV NAUSEA AND/OR VOMITING; Start 08/26 at 17:00 Phenol (Cepastat Lozenge) 1 lozenge Q6H PRN MT SORE THROAT; Start 08/26/16 at 17 :00 Zolpidem Tartrate (Ambien) 5 mg HS PRN PO INSOMNIA Last administered on 22:04; Admin Dose 5 MG; Start 08/26/16 at 17:00 Acetaminophen/ Hydrocodone Bitart 1 tab 1 tab Q4H PRN PO PAIN Last administered on 08/30/16 07:16; Admin Dose 1 TAB; Start 08/26/16 at 17:00 Acetaminophen (Ofirmev 1000mg/ 100ml Iv) 100 ml @ 400 mls/hr Q6 IVPB ; Start at 18:00; Status Future Hold Amlodipine Besylate (Norvasc) 5 mg DAILY PO Last administered on 08/30/16 09: 12; Admin Dose 5 MG; Start 08/27/16 at 09:00 Atorvastatin Calcium (Lipitor) 10 mg DAILY@21 PO Last administered on 22:03; Admin Dose 10 MG; Start 08/26/16 at 21:00 Clonidine (Catapres) 0.1 mg Q4H PRN PO SBP > 160; Start 08/26/16 at 17:00 Clopidogrel Bisulfate (plaVIX) 75 mg DAILY PO Last administered on 08/30/16 09 :11; Admin Dose 75 MG; Start 08/27/16 at 09:00 Senna/Docusate Sodium (Senokot-S) 1 tab BID PO Last administered on 08/30/16 09:11; Admin Dose 1 TAB; Start 08/26/16 at 21:00 Docusate Sodium (Colace) 100 mg BID PO Last administered on 08/30/16 09:10; Admin Dose 100 MG; Start 08/27/16 at 09:00 Acetaminophen (Tylenol Tab) 650 mg Q4H PRN PO PAIN; Start 08/27/16 at 01:00 Magnesium Hydroxide (Milk Of Mag) 30 ml BID PRN PO CONSTIPATION; Start 08/27/16 at 05:30 Lactulose (Enulose) 20 gm DAILY PRN PO CONSTIPATION Last administered on 17:23; Admin Dose 20 GM; Start 08/27/16 at 05:30 Bisacodyl (Dulcolax Supp) 10 mg DAILY PRN [place] CONSTIPATION Last administered on 08/28/16 01:36; Admin Dose 10 MG; Start 08/27/16 at 05:30 Allopurinol (Zyloprim) 100 mg DAILY PO Last administered on 08/30/16 09:11; Admin Dose 100 MG; Start 08/28/16 at 16:00 Assessment/Plan Additional Assessment/Plan Rehab- Spinal stenosis-s/p lami Excellent progress with rehab Pain- under control A/CKD-monitor Gout COPD RICHARD SHAVER MD August 30, 2016 11:35
[2016-08-30 19:43] VITALS: BP 161/71; RESP 18
[2016-08-30] MEDS: ATORVASTATIN 10 MG TAB PO SCH (21:00)
[2016-08-30] MEDS: ZOLPIDEM 5 MG TAB PO PRN (22:54)
[2016-08-31 07:52] VITALS: BP 156/69; RESP 18
[2016-08-31] MEDS: FERROUS SULFATE (EC) 325 MG TAB PO SCH (09:00)
[2016-08-31] MEDS: SENNA/DOCUSATE NA (8.6MG/50MG) TAB PO SCH ×2 (09:47→20:08)
[2016-08-31] MEDS: DOCUSATE SODIUM 100 MG CAP PO SCH ×2 (09:47→20:08)
[2016-08-31] MEDS: ALLOPURINOL 100 MG TAB PO SCH (09:47)
[2016-08-31] MEDS: CLOPIDOGREL 75 MG TAB PO SCH (09:47)
[2016-08-31] MEDS: HYDROCODONE/APAP (10/325) TAB PO PRN ×2 (09:48→20:08)
[2016-08-31] MEDS: AMLODIPINE 5 MG TAB PO SCH (09:51)
[2016-08-31] MEDS: ENALAPRIL 10 MG TAB PO SCH (09:51)
[2016-08-31] MEDS: LACTULOSE 30ML CUP PO PRN (09:51)
--- NOTE | 2016-08-31 12:23 | CONS ---
Date/Time of Note Date/Time of Note DATE: 08/31/16 TIME: 12:21 Consult Date/Type/Reason Admit Date/Time August 26, 2016 at 15:57 Subjective comfortable Objective up for activities with improved mobility and balance sba ambulation Vital Signs Date Time Temp Pulse Resp B/P Pulse Ox O2 Delivery O2 Flow Rate FiO2 08/31/16 07:52 98.3 56 18 156/69 95 08/30/16 08:00 Room Air 08/27/16 20:00 2.0 Intake and Output 08/30/16 08/30/16 08/31/16 15:00 23:00 07:00 Intake Total 720 ml Output Total 350 ml Balance 720 ml -350 ml Results/Medications Result Diagram: 08/27/16 0657 08/27/16 0657 Medications Current Medications Enalapril Maleate (Vasotec) 10 mg DAILY PO Last administered on 08/31/16 09:51 ; Admin Dose 10 MG; Start 08/27/16 at 09:00 Ferrous Sulfate (Ferrous Sulfate (Ec)) 325 mg DAILY PO Last administered on 09:11; Admin Dose 325 MG; Start 08/27/16 at 09:00 Morphine Sulfate (morphine) 2 mg Q3H PRN IV PAIN Last administered on 08/27/16 08:14; Admin Dose 2 MG; Start 08/26/16 at 17:00 Ondansetron HCl (Zofran Inj) 4 mg Q6H PRN IV NAUSEA AND/OR VOMITING; Start 08/26 at 17:00 Phenol (Cepastat Lozenge) 1 lozenge Q6H PRN MT SORE THROAT; Start 08/26/16 at 17 :00 Zolpidem Tartrate (Ambien) 5 mg HS PRN PO INSOMNIA Last administered on 22:54; Admin Dose 5 MG; Start 08/26/16 at 17:00 Acetaminophen/ Hydrocodone Bitart 1 tab 1 tab Q4H PRN PO PAIN Last administered on 08/31/16 09:48; Admin Dose 1 TAB; Start 08/26/16 at 17:00 Acetaminophen (Ofirmev 1000mg/ 100ml Iv) 100 ml @ 400 mls/hr Q6 IVPB ; Start at 18:00; Status Future Hold Amlodipine Besylate (Norvasc) 5 mg DAILY PO Last administered on 08/31/16 09: 51; Admin Dose 5 MG; Start 08/27/16 at 09:00 Atorvastatin Calcium (Lipitor) 10 mg DAILY@21 PO Last administered on 21:00; Admin Dose 10 MG; Start 08/26/16 at 21:00 Clonidine (Catapres) 0.1 mg Q4H PRN PO SBP > 160; Start 08/26/16 at 17:00 Clopidogrel Bisulfate (plaVIX) 75 mg DAILY PO Last administered on 08/31/16 09 :47; Admin Dose 75 MG; Start 08/27/16 at 09:00 Senna/Docusate Sodium (Senokot-S) 1 tab BID PO Last administered on 08/31/16 09:47; Admin Dose 1 TAB; Start 08/26/16 at 21:00 Docusate Sodium (Colace) 100 mg BID PO Last administered on 08/31/16 09:47; Admin Dose 100 MG; Start 08/27/16 at 09:00 Acetaminophen (Tylenol Tab) 650 mg Q4H PRN PO PAIN; Start 08/27/16 at 01:00 Magnesium Hydroxide (Milk Of Mag) 30 ml BID PRN PO CONSTIPATION; Start 08/27/16 at 05:30 Lactulose (Enulose) 20 gm DAILY PRN PO CONSTIPATION Last administered on 09:51; Admin Dose 20 GM; Start 08/27/16 at 05:30 Bisacodyl (Dulcolax Supp) 10 mg DAILY PRN [place] CONSTIPATION Last administered on 08/28/16 01:36; Admin Dose 10 MG; Start 08/27/16 at 05:30 Allopurinol (Zyloprim) 100 mg DAILY PO Last administered on 08/31/16 09:47; Admin Dose 100 MG; Start 08/28/16 at 16:00 Assessment/Plan Additional Assessment/Plan Rehab- Spinal stenosis-s/p lami Doing very well with rehab Pain- under control A/CKD-monitor Gout COPD RICHARD SHAVER MD August 31, 2016 12:23
--- NOTE | 2016-08-31 18:34 | PN ---
Date/Time of Note Date/Time of Note DATE: 08/31/16 TIME: 18:33 Assessment/Plan VTE Prophylaxis VTE Prophylaxis Intervention: SCD's Lines/[facility] Assessment/Plan Chief Complaint/Hosp Course ASSESSMENT AND PLAN: 1. Lumbar spondylosis, status post laminectomy. Continue physical therapy. 2. Hypertension. Continue Vasotec. 3. Hyperlipidemia. Continue Lipitor. 4. Anemia of blood loss in addition to iron deficiency anemia. Continue iron supplements. 5. Chronic kidney disease. 6. Peripheral vascular disease. 7. Gout, continue allopurinol. Further recommendations based on clinical course. Plan of care was discussed with Dr. Walker. Problems: Subjective 24 Hr Interval Summary Free Text/Dictation Patient's complains of occasional muscle spasm, able to work with physical therapy, admits that her pain is manageable with current medication. Exam/Review of Systems Vital Signs Vitals Vital Signs Date Time Temp Pulse Resp B/P Pulse Ox O2 Delivery O2 Flow Rate FiO2 08/31/16 07:52 98.3 56 18 156/69 95 08/30/16 08:00 Room Air 08/27/16 20:00 2.0 Intake and Output 08/30/16 08/30/16 08/31/16 15:00 23:00 07:00 Intake Total 720 ml Output Total 350 ml Balance 720 ml -350 ml Exam GENERAL: Well-developed, well-nourished female, currently is awake, alert. HEENT: Head is atraumatic, normocephalic. Pupils equal, round, reactive to light and accommodation. Oral mucosa is pink, moist. NECK: Supple. No cervical lymphadenopathy, no thyromegaly. CHEST: Lungs clear bilaterally with no rhonchi, wheezes, rales noted. CARDIOVASCULAR: Normal S1, S2. No murmurs, gallops, clicks, rubs noted. ABDOMEN: Round, soft, nondistended, nontender. Bowel sounds present. BACK: Status post surgery with dry, clean, intact surgical incision. SKIN: There is no rash, petechiae noted. EXTREMITIES: There is no edema, clubbing, cyanosis. NEUROLOGIC: The patient is awake, alert and oriented x4. Results Result Diagram: 08/27/16 0657 08/27/16 0657 Medications Medications Current Medications Enalapril Maleate (Vasotec) 10 mg DAILY PO Last administered on 08/31/16 09:51 ; Admin Dose 10 MG; Start 08/27/16 at 09:00 Ferrous Sulfate (Ferrous Sulfate (Ec)) 325 mg DAILY PO Last administered on 09:11; Admin Dose 325 MG; Start 08/27/16 at 09:00 Morphine Sulfate (morphine) 2 mg Q3H PRN IV PAIN Last administered on 08/27/16 08:14; Admin Dose 2 MG; Start 08/26/16 at 17:00 Ondansetron HCl (Zofran Inj) 4 mg Q6H PRN IV NAUSEA AND/OR VOMITING; Start 08/26 at 17:00 Phenol (Cepastat Lozenge) 1 lozenge Q6H PRN MT SORE THROAT; Start 08/26/16 at 17 :00 Zolpidem Tartrate (Ambien) 5 mg HS PRN PO INSOMNIA Last administered on 22:54; Admin Dose 5 MG; Start 08/26/16 at 17:00 Acetaminophen/ Hydrocodone Bitart 1 tab 1 tab Q4H PRN PO PAIN Last administered on 08/31/16 09:48; Admin Dose 1 TAB; Start 08/26/16 at 17:00 Acetaminophen (Ofirmev 1000mg/ 100ml Iv) 100 ml @ 400 mls/hr Q6 IVPB ; Start at 18:00; Status Future Hold Amlodipine Besylate (Norvasc) 5 mg DAILY PO Last administered on 08/31/16 09: 51; Admin Dose 5 MG; Start 08/27/16 at 09:00 Atorvastatin Calcium (Lipitor) 10 mg DAILY@21 PO Last administered on 21:00; Admin Dose 10 MG; Start 08/26/16 at 21:00 Clonidine (Catapres) 0.1 mg Q4H PRN PO SBP > 160; Start 08/26/16 at 17:00 Clopidogrel Bisulfate (plaVIX) 75 mg DAILY PO Last administered on 08/31/16 09 :47; Admin Dose 75 MG; Start 08/27/16 at 09:00 Senna/Docusate Sodium (Senokot-S) 1 tab BID PO Last administered on 08/31/16 09:47; Admin Dose 1 TAB; Start 08/26/16 at 21:00 Docusate Sodium (Colace) 100 mg BID PO Last administered on 08/31/16 09:47; Admin Dose 100 MG; Start 08/27/16 at 09:00 Acetaminophen (Tylenol Tab) 650 mg Q4H PRN PO PAIN; Start 08/27/16 at 01:00 Magnesium Hydroxide (Milk Of Mag) 30 ml BID PRN PO CONSTIPATION; Start 08/27/16 at 05:30 Lactulose (Enulose) 20 gm DAILY PRN PO CONSTIPATION Last administered on 09:51; Admin Dose 20 GM; Start 08/27/16 at 05:30 Bisacodyl (Dulcolax Supp) 10 mg DAILY PRN [place] CONSTIPATION Last administered on 08/28/16 01:36; Admin Dose 10 MG; Start 08/27/16 at 05:30 Allopurinol (Zyloprim) 100 mg DAILY PO Last administered on 08/31/16 09:47; Admin Dose 100 MG; Start 08/28/16 at 16:00 MIKAEL PANCHAL August 31, 2016 18:34
[2016-08-31] MEDS: CARISOPRODOL 350 MG TAB PO PRN (20:06)
[2016-08-31] MEDS: ATORVASTATIN 10 MG TAB PO SCH (20:06)
[2016-08-31] MEDS: ZOLPIDEM 5 MG TAB PO PRN (20:08)
[2016-08-31 20:16] VITALS: BP 129/60; RESP 18
[2016-09-01] MEDS: HYDROCODONE/APAP (10/325) TAB PO PRN ×3 (07:26→21:54)
[2016-09-01] MEDS: CLOPIDOGREL 75 MG TAB PO SCH (08:42)
[2016-09-01] MEDS: DOCUSATE SODIUM 100 MG CAP PO SCH ×2 (08:43→21:53)
[2016-09-01] MEDS: ALLOPURINOL 100 MG TAB PO SCH (08:43)
[2016-09-01] MEDS: AMLODIPINE 5 MG TAB PO SCH (08:43)
[2016-09-01] MEDS: ENALAPRIL 10 MG TAB PO SCH (08:43)
[2016-09-01] MEDS: SENNA/DOCUSATE NA (8.6MG/50MG) TAB PO SCH ×2 (08:44→21:00)
[2016-09-01] MEDS: FERROUS SULFATE (EC) 325 MG TAB PO SCH (08:44)
[2016-09-01 08:46] VITALS: BP 129/63; PULSE 88; RESP 16
--- NOTE | 2016-09-01 10:17 | PN ---
Date/Time of Note Date/Time of Note DATE: 09/01/16 TIME: 10:10 Assessment/Plan VTE Prophylaxis VTE Prophylaxis Intervention: ambulation, SCD's Lines/Catheters IV Catheter Type (from Nrsg): Saline Lock Assessment/Plan Assessment/Plan 1. Severe L3-S1 spondylosis, status post laminectomy. With impaired mobility, gait and ADLs. Continue PT/OT. Gait improving, SPV for gait 300ft with FWW. 2. Acute post operative pain with baseline chronic pain syndrome. Improving, continue pain regimen including prn norco and soma. 3. Chronic kidney disease. Avoid nephrotoxic agents. Continue to monitor renal function. 4. Gout. Continue allopurinol. 5. Anemia. On iron supplementation. Continue to monitor hemoglobin/hematocrit. 6. Hypertension. Continue antihypertensive medications per internal medicine. 7. Hyperlipidemia. Continue statin. 8. Peripheral vascular disease. Continue medical management. Subjective 24 Hr Interval Summary Free Text/Dictation Rehab progress note Subjective: Reports minimal pain currently in low back, spasms improved with starting of soma. ROS: Denies chest pain, no shortness of breath, no abdominal pain, no nausea, no constipation, no dysuria, no chills. Exam/Review of Systems Vital Signs Vitals Vital Signs Date Time Temp Pulse Resp B/P Pulse Ox O2 Delivery O2 Flow Rate FiO2 09/01/16 08:46 98.0 88 16 129/63 95 Room Air Intake and Output 08/31/16 08/31/16 09/01/16 15:00 23:00 07:00 Intake Total 1200 ml 1020 ml 200 ml Balance 1200 ml 1020 ml 200 ml Exam General: Awake, alert, no acute distress CV: Regular rate, s1s2 Lungs: Clear to auscultation, no wheezing Abdomen soft, nontender Extremities without cyanosis, no distal edema Neuro: Antigravity strength BUE/BLE, no new sensory changes Medications Medications Current Medications Enalapril Maleate (Vasotec) 10 mg DAILY PO Last administered on 09/01/16 08:43 ; Admin Dose 10 MG; Start 08/27/16 at 09:00 Ferrous Sulfate (Ferrous Sulfate (Ec)) 325 mg DAILY PO Last administered on 09:11; Admin Dose 325 MG; Start 08/27/16 at 09:00 Morphine Sulfate (morphine) 2 mg Q3H PRN IV PAIN Last administered on 08/27/16 08:14; Admin Dose 2 MG; Start 08/26/16 at 17:00 Ondansetron HCl (Zofran Inj) 4 mg Q6H PRN IV NAUSEA AND/OR VOMITING; Start 08/26 at 17:00 Phenol (Cepastat Lozenge) 1 lozenge Q6H PRN MT SORE THROAT; Start 08/26/16 at 17 :00 Zolpidem Tartrate (Ambien) 5 mg HS PRN PO INSOMNIA Last administered on 20:08; Admin Dose 5 MG; Start 08/26/16 at 17:00 Acetaminophen/ Hydrocodone Bitart 1 tab 1 tab Q4H PRN PO PAIN Last administered on 09/01/16 07:26; Admin Dose 1 TAB; Start 08/26/16 at 17:00 Acetaminophen (Ofirmev 1000mg/ 100ml Iv) 100 ml @ 400 mls/hr Q6 IVPB ; Start at 18:00; Status Future Hold Amlodipine Besylate (Norvasc) 5 mg DAILY PO Last administered on 09/01/16 08: 43; Admin Dose 5 MG; Start 08/27/16 at 09:00 Atorvastatin Calcium (Lipitor) 10 mg DAILY@21 PO Last administered on 20:06; Admin Dose 10 MG; Start 08/26/16 at 21:00 Clonidine (Catapres) 0.1 mg Q4H PRN PO SBP > 160; Start 08/26/16 at 17:00 Clopidogrel Bisulfate (plaVIX) 75 mg DAILY PO Last administered on 09/01/16 08 :42; Admin Dose 75 MG; Start 08/27/16 at 09:00 Senna/Docusate Sodium (Senokot-S) 1 tab BID PO Last administered on 08/31/16 09:47; Admin Dose 1 TAB; Start 08/26/16 at 21:00 Docusate Sodium (Colace) 100 mg BID PO Last administered on 09/01/16 08:43; Admin Dose 100 MG; Start 08/27/16 at 09:00 Acetaminophen (Tylenol Tab) 650 mg Q4H PRN PO PAIN; Start 08/27/16 at 01:00 Magnesium Hydroxide (Milk Of Mag) 30 ml BID PRN PO CONSTIPATION; Start 08/27/16 at 05:30 Lactulose (Enulose) 20 gm DAILY PRN PO CONSTIPATION Last administered on 09:51; Admin Dose 20 GM; Start 08/27/16 at 05:30 Bisacodyl (Dulcolax Supp) 10 mg DAILY PRN [place] CONSTIPATION Last administered on 08/28/16 01:36; Admin Dose 10 MG; Start 08/27/16 at 05:30 Allopurinol (Zyloprim) 100 mg DAILY PO Last administered on 09/01/16 08:43; Admin Dose 100 MG; Start 08/28/16 at 16:00 Carisoprodol (Soma) 350 mg BID PRN PO MUSCLE SPASMS Last administered on 20:06; Admin Dose 350 MG; Start 08/31/16 at 19:00 SALMA COVINGTON September 01, 2016 10:17
--- NOTE | 2016-09-01 11:57 | PN ---
Date/Time of Note Date/Time of Note DATE: 09/01/16 TIME: 11:56 Assessment/Plan VTE Prophylaxis VTE Prophylaxis Intervention: other Lines/Catheters IV Catheter Type (from Nrsg): Saline Lock Assessment/Plan Chief Complaint/Hosp Course 1. Lumbar spondylosis, status post laminectomy. Continue physical therapy. 2. Hypertension. Continue Vasotec. 3. Hyperlipidemia. Continue Lipitor. 4. Anemia of blood loss in addition to iron deficiency anemia. Continue iron supplements. 5. Chronic kidney disease. 6. Peripheral vascular disease. 7. Gout, continue allopurinol. Problems: Subjective 24 Hr Interval Summary Free Text/Dictation Patient is not in room so unable to interview Exam/Review of Systems Vital Signs Vitals Vital Signs Date Time Temp Pulse Resp B/P Pulse Ox O2 Delivery O2 Flow Rate FiO2 09/01/16 08:46 98.0 88 16 129/63 95 Room Air Intake and Output 08/31/16 08/31/16 09/01/16 15:00 23:00 07:00 Intake Total 1200 ml 1020 ml 200 ml Balance 1200 ml 1020 ml 200 ml Exam Patient is not in room so unable to examine Medications Medications Current Medications Enalapril Maleate (Vasotec) 10 mg DAILY PO Last administered on 09/01/16 08:43 ; Admin Dose 10 MG; Start 08/27/16 at 09:00 Ferrous Sulfate (Ferrous Sulfate (Ec)) 325 mg DAILY PO Last administered on 09:11; Admin Dose 325 MG; Start 08/27/16 at 09:00 Morphine Sulfate (morphine) 2 mg Q3H PRN IV PAIN Last administered on 08/27/16 08:14; Admin Dose 2 MG; Start 08/26/16 at 17:00 Ondansetron HCl (Zofran Inj) 4 mg Q6H PRN IV NAUSEA AND/OR VOMITING; Start 08/26 at 17:00 Phenol (Cepastat Lozenge) 1 lozenge Q6H PRN [place] SORE THROAT; Start 08/26/16 at 17 :00 Zolpidem Tartrate (Ambien) 5 mg HS PRN PO INSOMNIA Last administered on 20:08; Admin Dose 5 MG; Start 08/26/16 at 17:00 Acetaminophen/ Hydrocodone Bitart 1 tab 1 tab Q4H PRN PO PAIN Last administered on 09/01/16 07:26; Admin Dose 1 TAB; Start 08/26/16 at 17:00 Acetaminophen (Ofirmev 1000mg/ 100ml Iv) 100 ml @ 400 mls/hr Q6 IVPB ; Start at 18:00; Status Future Hold Amlodipine Besylate (Norvasc) 5 mg DAILY PO Last administered on 09/01/16 08: 43; Admin Dose 5 MG; Start 08/27/16 at 09:00 Atorvastatin Calcium (Lipitor) 10 mg DAILY@21 PO Last administered on 20:06; Admin Dose 10 MG; Start 08/26/16 at 21:00 Clonidine (Catapres) 0.1 mg Q4H PRN PO SBP > 160; Start 08/26/16 at 17:00 Clopidogrel Bisulfate (plaVIX) 75 mg DAILY PO Last administered on 09/01/16 08 :42; Admin Dose 75 MG; Start 08/27/16 at 09:00 Senna/Docusate Sodium (Senokot-S) 1 tab BID PO Last administered on 08/31/16 09:47; Admin Dose 1 TAB; Start 08/26/16 at 21:00 Docusate Sodium (Colace) 100 mg BID PO Last administered on 09/01/16 08:43; Admin Dose 100 MG; Start 08/27/16 at 09:00 Acetaminophen (Tylenol Tab) 650 mg Q4H PRN PO PAIN; Start 08/27/16 at 01:00 Magnesium Hydroxide (Milk Of Mag) 30 ml BID PRN PO CONSTIPATION; Start 08/27/16 at 05:30 Lactulose (Enulose) 20 gm DAILY PRN PO CONSTIPATION Last administered on 09:51; Admin Dose 20 GM; Start 08/27/16 at 05:30 Bisacodyl (Dulcolax Supp) 10 mg DAILY PRN [place] CONSTIPATION Last administered on 08/28/16 01:36; Admin Dose 10 MG; Start 08/27/16 at 05:30 Allopurinol (Zyloprim) 100 mg DAILY PO Last administered on 09/01/16 08:43; Admin Dose 100 MG; Start 08/28/16 at 16:00 Carisoprodol (Soma) 350 mg BID PRN PO MUSCLE SPASMS Last administered on t 20:06; Admin Dose 350 MG; Start 08/31/16 at 19:00 CATHY SOSA September 01, 2016 11:57
[2016-09-01 19:51] VITALS: BP 122/57; RESP 18
[2016-09-01] MEDS: ATORVASTATIN 10 MG TAB PO SCH (21:53)
[2016-09-01] MEDS: ZOLPIDEM 5 MG TAB PO PRN (21:54)
[2016-09-02] MEDS: CARISOPRODOL 350 MG TAB PO PRN (07:29)
[2016-09-02 07:30] VITALS: BP 138/60; RESP 18
[2016-09-02] MEDS: DOCUSATE SODIUM 100 MG CAP PO SCH ×2 (08:46→21:29)
[2016-09-02] MEDS: CLOPIDOGREL 75 MG TAB PO SCH (08:46)
[2016-09-02] MEDS: ALLOPURINOL 100 MG TAB PO SCH (08:47)
[2016-09-02] MEDS: SENNA/DOCUSATE NA (8.6MG/50MG) TAB PO SCH ×2 (08:47→21:00)
[2016-09-02] MEDS: ENALAPRIL 10 MG TAB PO SCH (08:47)
[2016-09-02] MEDS: FERROUS SULFATE (EC) 325 MG TAB PO SCH (08:47)
[2016-09-02] MEDS: AMLODIPINE 5 MG TAB PO SCH (08:48)
[2016-09-02 08:49] VITALS: BP 124/62; PULSE 94; RESP 16
[2016-09-02] MEDS: HYDROCODONE/APAP (10/325) TAB PO PRN ×2 (08:51→21:29)
--- NOTE | 2016-09-02 10:44 | PN ---
Date/Time of Note Date/Time of Note DATE: 09/02/16 TIME: 10:42 Assessment/Plan VTE Prophylaxis VTE Prophylaxis Intervention: ambulation, SCD's Lines/Catheters IV Catheter Type (from Nrsg): Saline Lock Urinary Cath still in place: No Assessment/Plan Assessment/Plan 1. Severe L3-S1 spondylosis, status post laminectomy. With impaired mobility, gait and ADLs. Continue PT/OT. SPV for grooming and toileting. 2. Acute post operative pain with baseline chronic pain syndrome. Pain controlled, continue current pain regimen. 3. Chronic kidney disease. Continue to monitor renal function. Avoid nephrotoxic agents. 4. Gout. Continue allopurinol. 5. Anemia. On iron supplementation. Continue to monitor hemoglobin/hematocrit. 6. Hypertension. BP controlled. Continue antihypertensive medications per internal medicine. 7. Hyperlipidemia. Continue statin. 8. Peripheral vascular disease. Continue medical management. Subjective 24 Hr Interval Summary Free Text/Dictation Rehab progress note Subjective: No acute overnight events per nursing. Reports 4/10 pain currently in low back. ROS: Denies headache, no dizziness, no new weakness or new paresthesias, no chest pain, no shortness of breath, no constipation. Exam/Review of Systems Vital Signs Vitals Vital Signs Date Time Temp Pulse Resp B/P Pulse Ox O2 Delivery O2 Flow Rate FiO2 09/02/16 08:49 94 16 124/62 96 Room Air 09/01/16 19:51 98.5 Intake and Output 09/01/16 09/01/16 09/02/16 15:00 23:00 07:00 Intake Total 960 ml 1060 ml 250 ml Output Total 840 ml Balance 960 ml 220 ml 250 ml Exam General: Awake, alert, no acute distress CV: Regular rate, s1s2 Lungs: Respirations nonlabored, no wheezing Abdomen soft, nontender, +bowel sounds Extremities without cyanosis, no new swelling Neuro: No new focal changes. Follows simple commands. Medications Medications Current Medications Enalapril Maleate (Vasotec) 10 mg DAILY PO Last administered on 09/02/16 08:47 ; Admin Dose 10 MG; Start 08/27/16 at 09:00 Ferrous Sulfate (Ferrous Sulfate (Ec)) 325 mg DAILY PO Last administered on 09:11; Admin Dose 325 MG; Start 08/27/16 at 09:00 Morphine Sulfate (morphine) 2 mg Q3H PRN IV PAIN Last administered on 08/27/16 08:14; Admin Dose 2 MG; Start 08/26/16 at 17:00 Ondansetron HCl (Zofran Inj) 4 mg Q6H PRN IV NAUSEA AND/OR VOMITING; Start 08/26 at 17:00 Phenol (Cepastat Lozenge) 1 lozenge Q6H PRN [place] SORE THROAT; Start 08/26/16 at 17 :00 Zolpidem Tartrate (Ambien) 5 mg HS PRN PO INSOMNIA Last administered on 21:54; Admin Dose 5 MG; Start 08/26/16 at 17:00 Acetaminophen/ Hydrocodone Bitart 1 tab 1 tab Q4H PRN PO PAIN Last administered on 09/02/16 08:51; Admin Dose 1 TAB; Start 08/26/16 at 17:00 Acetaminophen (Ofirmev 1000mg/ 100ml Iv) 100 ml @ 400 mls/hr Q6 IVPB ; Start at 18:00; Status Future Hold Amlodipine Besylate (Norvasc) 5 mg DAILY PO Last administered on 09/02/16 08: 48; Admin Dose 5 MG; Start 08/27/16 at 09:00 Atorvastatin Calcium (Lipitor) 10 mg DAILY@21 PO Last administered on 21:53; Admin Dose 10 MG; Start 08/26/16 at 21:00 Clonidine (Catapres) 0.1 mg Q4H PRN PO SBP > 160; Start 08/26/16 at 17:00 Clopidogrel Bisulfate (plaVIX) 75 mg DAILY PO Last administered on 09/02/16 08 :46; Admin Dose 75 MG; Start 08/27/16 at 09:00 Senna/Docusate Sodium (Senokot-S) 1 tab BID PO Last administered on 08/31/16 09:47; Admin Dose 1 TAB; Start 08/26/16 at 21:00 Docusate Sodium (Colace) 100 mg BID PO Last administered on 09/02/16 08:46; Admin Dose 100 MG; Start 08/27/16 at 09:00 Acetaminophen (Tylenol Tab) 650 mg Q4H PRN PO PAIN; Start 08/27/16 at 01:00 Magnesium Hydroxide (Milk Of Mag) 30 ml BID PRN PO CONSTIPATION; Start 08/27/16 at 05:30 Lactulose (Enulose) 20 gm DAILY PRN PO CONSTIPATION Last administered on 09:51; Admin Dose 20 GM; Start 08/27/16 at 05:30 Bisacodyl (Dulcolax Supp) 10 mg DAILY PRN [place] CONSTIPATION Last administered on 08/28/16 01:36; Admin Dose 10 MG; Start 08/27/16 at 05:30 Allopurinol (Zyloprim) 100 mg DAILY PO Last administered on 09/02/16 08:47; Admin Dose 100 MG; Start 08/28/16 at 16:00 Carisoprodol (Soma) 350 mg BID PRN PO MUSCLE SPASMS Last administered on 07:29; Admin Dose 350 MG; Start 08/31/16 at 19:00 SALMA COVINGTON September 02, 2016 10:44
--- NOTE | 2016-09-02 12:09 | PN ---
Date/Time of Note Date/Time of Note DATE: 09/02/16 TIME: 12:09 Assessment/Plan VTE Prophylaxis VTE Prophylaxis Intervention: other Lines/Catheters [facility] Saline Lock Urinary Cath still in place: No Assessment/Plan Chief Complaint/Hosp Course 1. Lumbar spondylosis, status post laminectomy. Continue physical therapy. 2. Hypertension. Continue Vasotec. 3. Hyperlipidemia. Continue Lipitor. 4. Anemia of blood loss in addition to iron deficiency anemia. Continue iron supplements. 5. Chronic kidney disease. 6. Peripheral vascular disease. 7. Gout, continue allopurinol. Problems: Subjective 24 Hr Interval Summary Free Text/Dictation Patient doing well, anticipate going home in the coming week Exam/Review of Systems Vital Signs Vitals Vital Signs Date Time Temp Pulse Resp B/P Pulse Ox O2 Delivery O2 Flow Rate FiO2 09/02/16 08:49 94 16 124/62 96 Room Air 09/01/16 19:51 98.5 Intake and Output 09/01/16 09/01/16 09/02/16 15:00 23:00 07:00 Intake Total 960 ml 1060 ml 250 ml Output Total 840 ml Balance 960 ml 220 ml 250 ml Exam Constitutional: well developed Head: atraumatic, normocephalic Neck: supple Respiratory: clear to auscultation Cardiovascular: regular rate and rhythm Gastrointestinal: non-tender, soft Extremities: normal pulses Medications Medications Current Medications Enalapril Maleate (Vasotec) 10 mg DAILY PO Last administered on 09/02/16 08:47 ; Admin Dose 10 MG; Start 08/27/16 at 09:00 Ferrous Sulfate (Ferrous Sulfate (Ec)) 325 mg DAILY PO Last administered on 09:11; Admin Dose 325 MG; Start 08/27/16 at 09:00 Morphine Sulfate (morphine) 2 mg Q3H PRN IV PAIN Last administered on 08/27/16 08:14; Admin Dose 2 MG; Start 08/26/16 at 17:00 Ondansetron HCl (Zofran Inj) 4 mg Q6H PRN IV NAUSEA AND/OR VOMITING; Start 08/26 at 17:00 Phenol (Cepastat Lozenge) 1 lozenge Q6H PRN [place] SORE THROAT; Start 08/26/16 at 17 :00 Zolpidem Tartrate (Ambien) 5 mg HS PRN PO INSOMNIA Last administered on 21:54; Admin Dose 5 MG; Start 08/26/16 at 17:00 Acetaminophen/ Hydrocodone Bitart 1 tab 1 tab Q4H PRN PO PAIN Last administered on 09/02/16 08:51; Admin Dose 1 TAB; Start 08/26/16 at 17:00 Acetaminophen (Ofirmev 1000mg/ 100ml Iv) 100 ml @ 400 mls/hr Q6 IVPB ; Start at 18:00; Status Future Hold Amlodipine Besylate (Norvasc) 5 mg DAILY PO Last administered on 09/02/16 08: 48; Admin Dose 5 MG; Start 08/27/16 at 09:00 Atorvastatin Calcium (Lipitor) 10 mg DAILY@21 PO Last administered on 21:53; Admin Dose 10 MG; Start 08/26/16 at 21:00 Clonidine (Catapres) 0.1 mg Q4H PRN PO SBP > 160; Start 08/26/16 at 17:00 Clopidogrel Bisulfate (plaVIX) 75 mg DAILY PO Last administered on 09/02/16 08 :46; Admin Dose 75 MG; Start 08/27/16 at 09:00 Senna/Docusate Sodium (Senokot-S) 1 tab BID PO Last administered on 08/31/16 09:47; Admin Dose 1 TAB; Start 08/26/16 at 21:00 Docusate Sodium (Colace) 100 mg BID PO Last administered on 09/02/16 08:46; Admin Dose 100 MG; Start 08/27/16 at 09:00 Acetaminophen (Tylenol Tab) 650 mg Q4H PRN PO PAIN; Start 08/27/16 at 01:00 Magnesium Hydroxide (Milk Of Mag) 30 ml BID PRN PO CONSTIPATION; Start 08/27/16 at 05:30 Lactulose (Enulose) 20 gm DAILY PRN PO CONSTIPATION Last administered on 09:51; Admin Dose 20 GM; Start 08/27/16 at 05:30 Bisacodyl (Dulcolax Supp) 10 mg DAILY PRN [place] CONSTIPATION Last administered on 08/28/16 01:36; Admin Dose 10 MG; Start 08/27/16 at 05:30 Allopurinol (Zyloprim) 100 mg DAILY PO Last administered on 09/02/16 08:47; Admin Dose 100 MG; Start 08/28/16 at 16:00 Carisoprodol (Soma) 350 mg BID PRN PO MUSCLE SPASMS Last administered on 07:29; Admin Dose 350 MG; Start 08/31/16 at 19:00 CATHY SOSA September 02, 2016 12:09
[2016-09-02 21:27] VITALS: BP 140/60; PULSE 62; RESP 16
[2016-09-02] MEDS: ATORVASTATIN 10 MG TAB PO SCH (21:28)
[2016-09-02] MEDS: ZOLPIDEM 5 MG TAB PO PRN (21:29)
[2016-09-03] MEDS: CARISOPRODOL 350 MG TAB PO PRN (08:27)
[2016-09-03] MEDS: DOCUSATE SODIUM 100 MG CAP PO SCH ×2 (08:28→21:59)
[2016-09-03] MEDS: AMLODIPINE 5 MG TAB PO SCH (08:29)
[2016-09-03] MEDS: SENNA/DOCUSATE NA (8.6MG/50MG) TAB PO SCH ×2 (08:29→21:00)
[2016-09-03] MEDS: ENALAPRIL 10 MG TAB PO SCH (09:00)
[2016-09-03] MEDS: FERROUS SULFATE (EC) 325 MG TAB PO SCH (09:00)
[2016-09-03] MEDS: CLOPIDOGREL 75 MG TAB PO SCH (09:00)
[2016-09-03] MEDS: ALLOPURINOL 100 MG TAB PO SCH (09:20)
[2016-09-03] MEDS: HYDROCODONE/APAP (10/325) TAB PO PRN ×3 (09:20→22:00)
--- NOTE | 2016-09-03 11:49 | CONS ---
Date/Time of Note Date/Time of Note DATE: 09/03/16 TIME: 11:48 Consult Date/Type/Reason Admit Date/Time August 26, 2016 at 15:57 Subjective Doing great Objective Vital Signs Date Time Temp Pulse Resp B/P Pulse Ox O2 Delivery O2 Flow Rate FiO2 09/02/16 21:27 98.4 62 16 140/60 93 Room Air Intake and Output 09/02/16 09/02/16 09/03/16 14:59 22:59 06:59 Intake Total 1320 ml 300 ml Output Total 800 ml Balance 520 ml 300 ml INTERDISCIPLINARY TEAM CONFERENCE BOWEL- Cont BLADDER-Cont SKIN- intact OT- DRESSING-sba BATHING-sba TOILETING-sba PT- BED MOBILITY-sba TRANSFERS-sba AMBULATION-sba 200 feet A/P- Interdisciplinary team conference held today. Please see interdisciplinary sheet. Working toward [email or web address] on 09/04 with post discharge follow up of physical therapy, occupational therapy. Results/Medications Medications Current Medications Enalapril Maleate (Vasotec) 10 mg DAILY PO Last administered on 09/02/16 08:47 ; Admin Dose 10 MG; Start 08/27/16 at 09:00 Ferrous Sulfate (Ferrous Sulfate (Ec)) 325 mg DAILY PO Last administered on 09:11; Admin Dose 325 MG; Start 08/27/16 at 09:00 Morphine Sulfate (morphine) 2 mg Q3H PRN IV PAIN Last administered on 08/27/16 08:14; Admin Dose 2 MG; Start 08/26/16 at 17:00 Ondansetron HCl (Zofran Inj) 4 mg Q6H PRN IV NAUSEA AND/OR VOMITING; Start 08/26 at 17:00 Phenol (Cepastat Lozenge) 1 lozenge Q6H PRN MT SORE THROAT; Start 08/26/16 at 17 :00 Zolpidem Tartrate (Ambien) 5 mg HS PRN PO INSOMNIA Last administered on 21:29; Admin Dose 5 MG; Start 08/26/16 at 17:00 Acetaminophen/ Hydrocodone Bitart 1 tab 1 tab Q4H PRN PO PAIN Last administered on 09/03/16 09:20; Admin Dose 1 TAB; Start 08/26/16 at 17:00 Acetaminophen (Ofirmev 1000mg/ 100ml Iv) 100 ml @ 400 mls/hr Q6 IVPB ; Start at 18:00; Status Future Hold Amlodipine Besylate (Norvasc) 5 mg DAILY PO Last administered on 09/03/16 08: 29; Admin Dose 5 MG; Start 08/27/16 at 09:00 Atorvastatin Calcium (Lipitor) 10 mg DAILY@21 PO Last administered on 21:28; Admin Dose 10 MG; Start 08/26/16 at 21:00 Clonidine (Catapres) 0.1 mg Q4H PRN PO SBP > 160; Start 08/26/16 at 17:00 Clopidogrel Bisulfate (plaVIX) 75 mg DAILY PO Last administered on 09/02/16 08 :46; Admin Dose 75 MG; Start 08/27/16 at 09:00 Senna/Docusate Sodium (Senokot-S) 1 tab BID PO Last administered on 09/03/16 08:29; Admin Dose 1 TAB; Start 08/26/16 at 21:00 Docusate Sodium (Colace) 100 mg BID PO Last administered on 09/03/16 08:28; Admin Dose 100 MG; Start 08/27/16 at 09:00 Acetaminophen (Tylenol Tab) 650 mg Q4H PRN PO PAIN; Start 08/27/16 at 01:00 Magnesium Hydroxide (Milk Of Mag) 30 ml BID PRN PO CONSTIPATION; Start 08/27/16 at 05:30 Lactulose (Enulose) 20 gm DAILY PRN PO CONSTIPATION Last administered on 09:51; Admin Dose 20 GM; Start 08/27/16 at 05:30 Bisacodyl (Dulcolax Supp) 10 mg DAILY PRN [place] CONSTIPATION Last administered on 08/28/16 01:36; Admin Dose 10 MG; Start 08/27/16 at 05:30 Allopurinol (Zyloprim) 100 mg DAILY PO Last administered on 09/03/16 09:20; Admin Dose 100 MG; Start 08/28/16 at 16:00 Carisoprodol (Soma) 350 mg BID PRN PO MUSCLE SPASMS Last administered on 08:27; Admin Dose 350 MG; Start 08/31/16 at 19:00 RICHARD SHAVER MD September 03, 2016 11:49 RICHARD SHAVER MD September 03, 2016 11:49
--- NOTE | 2016-09-03 16:35 | PN ---
Date/Time of Note Date/Time of Note DATE: 09/03/16 TIME: 16:34 Assessment/Plan VTE Prophylaxis VTE Prophylaxis Intervention: SCD's Lines/Catheters [facility] Saline Lock Urinary Cath still in place: No Assessment/Plan Chief Complaint/Hosp Course ASSESSMENT AND PLAN: 1. Lumbar spondylosis, status post laminectomy. Continue physical therapy. 2. Hypertension. Continue Vasotec. 3. Hyperlipidemia. Continue Lipitor. 4. Anemia of blood loss in addition to iron deficiency anemia. Continue iron supplements. 5. Chronic kidney disease. 6. Peripheral vascular disease. 7. Gout, continue allopurinol. Further recommendations based on clinical course. Plan of care was discussed with Dr. Walker. Problems: Subjective 24 Hr Interval Summary Free Text/Dictation Patient remains hemodynamically stable, continues to work with physical therapy. Exam/Review of Systems Vital Signs Vitals Vital Signs Date Time Temp Pulse Resp B/P Pulse Ox O2 Delivery O2 Flow Rate FiO2 09/02/16 21:27 98.4 62 16 140/60 93 Room Air Intake and Output 09/02/16 09/02/16 09/03/16 15:00 23:00 07:00 Intake Total 1320 ml 300 ml Output Total 800 ml Balance 520 ml 300 ml Exam GENERAL: Well-developed, well-nourished female, currently is awake, alert. HEENT: Head is atraumatic, normocephalic. Pupils equal, round, reactive to light and accommodation. Oral mucosa is pink, moist. NECK: Supple. No cervical lymphadenopathy, no thyromegaly. CHEST: Lungs clear bilaterally with no rhonchi, wheezes, rales noted. CARDIOVASCULAR: Normal S1, S2. No murmurs, gallops, clicks, rubs noted. ABDOMEN: Round, soft, nondistended, nontender. Bowel sounds present. BACK: Status post surgery with dry, clean, intact surgical incision. SKIN: There is no rash, petechiae noted. EXTREMITIES: There is no edema, clubbing, cyanosis. NEUROLOGIC: The patient is awake, alert and oriented x4. Medications Medications Current Medications Enalapril Maleate (Vasotec) 10 mg DAILY PO Last administered on 09/02/16t 08:47 ; Admin Dose 10 MG; Start 08/27/16 at 09:00 Ferrous Sulfate (Ferrous Sulfate (Ec)) 325 mg DAILY PO Last administered on 09:11; Admin Dose 325 MG; Start 08/27/16 at 09:00 Morphine Sulfate (morphine) 2 mg Q3H PRN IV PAIN Last administered on 08/27/16 08:14; Admin Dose 2 MG; Start 08/26/16 at 17:00 Ondansetron HCl (Zofran Inj) 4 mg Q6H PRN IV NAUSEA AND/OR VOMITING; Start 08/26 at 17:00 Phenol (Cepastat Lozenge) 1 lozenge Q6H PRN [place] SORE THROAT; Start 08/26/16 at 17 :00 Zolpidem Tartrate (Ambien) 5 mg HS PRN PO INSOMNIA Last administered on 21:29; Admin Dose 5 MG; Start 08/26/16 at 17:00 Acetaminophen/ Hydrocodone Bitart 1 tab 1 tab Q4H PRN PO PAIN Last administered on 09/03/16 09:20; Admin Dose 1 TAB; Start 08/26/16 at 17:00 Acetaminophen (Ofirmev 1000mg/ 100ml Iv) 100 ml @ 400 mls/hr Q6 IVPB ; Start at 18:00; Status Future Hold Amlodipine Besylate (Norvasc) 5 mg DAILY PO Last administered on 09/03/16 08: 29; Admin Dose 5 MG; Start 08/27/16 at 09:00 Atorvastatin Calcium (Lipitor) 10 mg DAILY@21 PO Last administered on 21:28; Admin Dose 10 MG; Start 08/26/16 at 21:00 Clonidine (Catapres) 0.1 mg Q4H PRN PO SBP > 160; Start 08/26/16 at 17:00 Clopidogrel Bisulfate (plaVIX) 75 mg DAILY PO Last administered on 09/03/16 09 :00; Admin Dose 75 MG; Start 08/27/16 at 09:00 Senna/Docusate Sodium (Senokot-S) 1 tab BID PO Last administered on 09/03/16 08:29; Admin Dose 1 TAB; Start 08/26/16 at 21:00 Docusate Sodium (Colace) 100 mg BID PO Last administered on 09/03/16 08:28; Admin Dose 100 MG; Start 08/27/16 at 09:00 Acetaminophen (Tylenol Tab) 650 mg Q4H PRN PO PAIN; Start 08/27/16 at 01:00 Magnesium Hydroxide (Milk Of Mag) 30 ml BID PRN PO CONSTIPATION; Start 08/27/16 at 05:30 Lactulose (Enulose) 20 gm DAILY PRN PO CONSTIPATION Last administered on 09:51; Admin Dose 20 GM; Start 08/27/16 at 05:30 Bisacodyl (Dulcolax Supp) 10 mg DAILY PRN [place] CONSTIPATION Last administered on 08/28/16 01:36; Admin Dose 10 MG; Start 08/27/16 at 05:30 Allopurinol (Zyloprim) 100 mg DAILY PO Last administered on 09/03/16 09:20; Admin Dose 100 MG; Start 08/28/16 at 16:00 Carisoprodol (Soma) 350 mg BID PRN PO MUSCLE SPASMS Last administered on 08:27; Admin Dose 350 MG; Start 08/31/16 at 19:00 MIKAEL PANCHAL September 03, 2016 16:35
[2016-09-03 19:24] VITALS: BP 124/60; RESP 18
[2016-09-03] MEDS: ZOLPIDEM 5 MG TAB PO PRN (21:59)
[2016-09-03] MEDS: ATORVASTATIN 10 MG TAB PO SCH (21:59)
[2016-09-04 07:36] VITALS: BP 155/84; RESP 18
[2016-09-04] MEDS: CARISOPRODOL 350 MG TAB PO PRN (07:53)
[2016-09-04] MEDS: CLOPIDOGREL 75 MG TAB PO SCH (09:26)
[2016-09-04] MEDS: ALLOPURINOL 100 MG TAB PO SCH (09:26)
[2016-09-04] MEDS: FERROUS SULFATE (EC) 325 MG TAB PO SCH (09:26)
[2016-09-04] MEDS: ENALAPRIL 10 MG TAB PO SCH (09:26)
[2016-09-04] MEDS: SENNA/DOCUSATE NA (8.6MG/50MG) TAB PO SCH (09:26)
[2016-09-04] MEDS: DOCUSATE SODIUM 100 MG CAP PO SCH (09:27)
[2016-09-04] MEDS: AMLODIPINE 5 MG TAB PO SCH (09:27)
[2016-09-04] MEDS: HYDROCODONE/APAP (10/325) TAB PO PRN ×2 (09:32→13:23)
--- NOTE | 2016-09-04 11:01 | PN ---
Date/Time of Note Date/Time of Note DATE: 09/04/16 TIME: 11:01 Assessment/Plan VTE Prophylaxis VTE Prophylaxis Intervention: SCD's Lines/Catheters IV [facility] Saline Lock Urinary Cath still in place: No Assessment/Plan Chief Complaint/Hosp Course ASSESSMENT AND PLAN: 1. Lumbar spondylosis, status post laminectomy. Continue physical therapy. 2. Hypertension. Continue Vasotec. 3. Hyperlipidemia. Continue Lipitor. 4. Anemia of blood loss in addition to iron deficiency anemia. Continue iron supplements. 5. Chronic kidney disease. 6. Peripheral vascular disease. 7. Gout, continue allopurinol. Further recommendations based on clinical course. Plan of care was discussed with Dr. Walker. Problems: Subjective 24 Hr Interval Summary Free Text/Dictation pt looks comfortable, ready for d/c. Exam/Review of Systems Vital Signs Vitals Vital Signs Date Time Temp Pulse Resp B/P Pulse Ox O2 Delivery O2 Flow Rate FiO2 09/04/16 07:36 98.1 72 18 155/84 96 09/02/16 21:27 Room Air Intake and Output 09/03/16 09/03/16 09/04/16 15:00 23:00 07:00 Intake Total 1000 ml Balance 1000 ml Exam GENERAL: Well-developed, well-nourished female, currently is awake, alert. HEENT: Head is atraumatic, normocephalic. Pupils equal, round, reactive to light and accommodation. Oral mucosa is pink, moist. NECK: Supple. No cervical lymphadenopathy, no thyromegaly. CHEST: Lungs clear bilaterally with no rhonchi, wheezes, rales noted. CARDIOVASCULAR: Normal S1, S2. No murmurs, gallops, clicks, rubs noted. ABDOMEN: Round, soft, nondistended, nontender. Bowel sounds present. BACK: Status post surgery with dry, clean, intact surgical incision. SKIN: There is no rash, petechiae noted. EXTREMITIES: There is no edema, clubbing, cyanosis. NEUROLOGIC: The patient is awake, alert and oriented x4. Medications Medications Current Medications Enalapril Maleate (Vasotec) 10 mg DAILY PO Last administered on 09/04/16t 09:26 ; Admin Dose 10 MG; Start 08/27/16 at 09:00 Ferrous Sulfate (Ferrous Sulfate (Ec)) 325 mg DAILY PO Last administered on 09:26; Admin Dose 325 MG; Start 08/27/16 at 09:00 Morphine Sulfate (morphine) 2 mg Q3H PRN IV PAIN Last administered on 08/27/16 08:14; Admin Dose 2 MG; Start 08/26/16 at 17:00 Ondansetron HCl (Zofran Inj) 4 mg Q6H PRN IV NAUSEA AND/OR VOMITING; Start 08/26 at 17:00 Phenol (Cepastat Lozenge) 1 lozenge Q6H PRN [place] SORE THROAT; Start 08/26/16 at 17 :00 Zolpidem Tartrate (Ambien) 5 mg HS PRN PO INSOMNIA Last administered on 21:59; Admin Dose 5 MG; Start 08/26/16 at 17:00 Acetaminophen/ Hydrocodone Bitart 1 tab 1 tab Q4H PRN PO PAIN Last administered on 09/04/16 09:32; Admin Dose 1 TAB; Start 08/26/16 at 17:00 Acetaminophen (Ofirmev 1000mg/ 100ml Iv) 100 ml @ 400 mls/hr Q6 IVPB ; Start at 18:00; Status Future Hold Amlodipine Besylate (Norvasc) 5 mg DAILY PO Last administered on 09/04/16 09: 27; Admin Dose 5 MG; Start 08/27/16 at 09:00 Atorvastatin Calcium (Lipitor) 10 mg DAILY@21 PO Last administered on 21:59; Admin Dose 10 MG; Start 08/26/16 at 21:00 Clonidine (Catapres) 0.1 mg Q4H PRN PO SBP > 160; Start 08/26/16 at 17:00 Clopidogrel Bisulfate (plaVIX) 75 mg DAILY PO Last administered on 09/04/16 09 :26; Admin Dose 75 MG; Start 08/27/16 at 09:00 Senna/Docusate Sodium (Senokot-S) 1 tab BID PO Last administered on 09/04/16 09:26; Admin Dose 1 TAB; Start 08/26/16 at 21:00 Docusate Sodium (Colace) 100 mg BID PO Last administered on 09/04/16 09:27; Admin Dose 100 MG; Start 08/27/16 at 09:00 Acetaminophen (Tylenol Tab) 650 mg Q4H PRN PO PAIN; Start 08/27/16 at 01:00 Magnesium Hydroxide (Milk Of Mag) 30 ml BID PRN PO CONSTIPATION; Start 08/27/16 at 05:30 Lactulose (Enulose) 20 gm DAILY PRN PO CONSTIPATION Last administered on 09:51; Admin Dose 20 GM; Start 08/27/16 at 05:30 Bisacodyl (Dulcolax Supp) 10 mg DAILY PRN [place] CONSTIPATION Last administered on 08/28/16 01:36; Admin Dose 10 MG; Start 08/27/16 at 05:30 Allopurinol (Zyloprim) 100 mg DAILY PO Last administered on 09/04/16 09:26; Admin Dose 100 MG; Start 08/28/16 at 16:00 Carisoprodol (Soma) 350 mg BID PRN PO MUSCLE SPASMS Last administered on 07:53; Admin Dose 350 MG; Start 08/31/16 at 19:00 MIKAEL PANCHAL September 04, 2016 11:01
== END 2016-09-04 14:00 | disposition home health service (06) | DRG 560 ==
LOC: UNDOADMIN 15:57 → VRC 15:57
PROVIDERS: ADMIT Physical Medicine & Rehabilitation; ATTEND Internal Medicine
PROC: F07Z5ZZ Bed Mobility Treatment (ICD-10-PCS; principal; 2016-08-26)
PROC: F08Z2ZZ Grooming/Personal Hygiene Treatment (ICD-10-PCS; 2016-08-26)
DX: Z47.89 Encounter for other orthopedic aftercare (principal); N17.9 Acute kidney failure, unspecified; J44.9 Chronic obstructive pulmonary disease, unspecified; D50.0 Iron deficiency anemia secondary to blood loss (chronic); M48.06 Spinal stenosis, lumbar region; R52 Pain, unspecified; I10 Essential (primary) hypertension; I12.9 Hypertensive chronic kidney disease with stage 1 through stage 4 chronic kidney disease, or unspecified chronic kidney disease; N18.9 Chronic kidney disease, unspecified; E78.5 Hyperlipidemia, unspecified; I73.9 Peripheral vascular disease, unspecified; Z74.09 Other reduced mobility; M10.9 Gout, unspecified
CPT/HCPCS: 80053; 81001; 81003; 85025; 87081; 87086; 97110; 97112; 97116; 97150; 97163; 97167; 97530; 97535; J2270